=== PATIENT | female | born 1990 | race Two or more races ===

== ENCOUNTER 2016-04-18 13:46 | Inpatient (IN) | payer OTHER ==
[~2016-04-18] VITALS: Ht 154.9 cm; Wt 63.5 kg
[2016-04-18] MEDS ORDERED: NKM (14:04)
[2016-04-18 14:10] VITALS: BP 116/76
--- NOTE | 2016-04-18 14:10 | Emergency Room Report ---
History of Present Illness General Chief Complaint: Pain Source: Patient Present Illness HPI Patient is a 25-year-old female who presented after having increased low back pain. Patient was noted to have bilateral numbness and tingling. Patient had previous silicon injection approximately one year ago. Patient had increased body aches. Patient was presented for further evaluation.The patient noted numbness in the lateral thighs bilaterally. She had onset of symptoms of pain and numbness approximately 3 months ago. The patient had no symptoms previously. This had been progressive in nature. The patient was not having any focal weakness. Patient was able ambulatory normally and was having normal bowel movements and urinating normally. She denies being . The pain and previously been relieved by NSAIDs but the patient was no longer having any relief. the pain was worse in by flexion Allergies: Coded Allergies: No Known Allergies (Unverified , 04/18/16) Patient History Past Medical History: see triage record Last Menstrual Period: on period Reviewed Nursing Documentation: PMH: Agreed, PSxH: Agreed Nursing Documentation-PMH Past Medical History: No Stated History Review of Systems All Other Systems: negative except mentioned in HPI Physical Exam Vital Signs Date Time Temp Pulse Resp B/P Pulse Ox O2 Delivery O2 Flow Rate FiO2 04/18/16 14:01 97.9 87 15 113/76 97 Room Air Sp02 EP Interpretation: reviewed, normal General Appearance: normal inspection, well appearing, no apparent distress, alert, GCS 15 Head: atraumatic ENT: normal ENT inspection, hearing grossly normal, normal voice Neck: normal inspection, full range of motion, supple, no bony tend Respiratory: normal inspection, lungs clear, normal breath sounds, no respiratory distress, no retraction, no wheezing Cardiovascular #1: regular rate, rhythm, no edema Gastrointestinal: normal inspection, normal bowel sounds, non tender, soft, no guarding, no hernia Genitourinary: no CVA tenderness Musculoskeletal: normal inspection, back normal, normal range of motion Neurologic: normal inspection, alert, oriented x3, responsive, 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 Because of complexity of patient's case laboratory testing and imaging studies were ordered. The patient was noted to have history concerning for an autoimmune response due to the previous injections. Laboratory studies were essentially unremarkable. Patient was discussed with for inpatient management due to concerning symptoms. Labs Test 04/18/16 14:27 White Blood Count 5.3 K/UL (4.8-10.8) Red Blood Count 4.88 M/UL (4.20-5.40) Hemoglobin 14.2 G/DL (12.0-16.0) Hematocrit 42.1 % (37.0-47.0) Mean Corpuscular Volume 86 FL (80-99) Mean Corpuscular Hemoglobin 29.0 PG (27.0-31.0) Mean Corpuscular Hemoglobin Concent 33.7 G/DL (32.0-36.0) Red Cell Distribution Width 11.6 % (11.6-14.8) Platelet Count 361 K/UL (150-450) Mean Platelet Volume 7.2 FL (6.5-10.1) Neutrophils (%) (Auto) 45.0 % (45.0-75.0) Lymphocytes (%) (Auto) 39.6 % (20.0-45.0) Monocytes (%) (Auto) 9.2 % (1.0-10.0) Eosinophils (%) (Auto) 4.7 % (0.0-3.0) Basophils (%) (Auto) 1.5 % (0.0-2.0) Prothrombin Time 10.5 SEC (9.30-11.50) Prothromb Time International Ratio 1.0 (0.9-1.1) Activated Partial Thromboplast Time 30 SEC (23-33) Urine Color Yellow Urine Appearance Slightly cloudy Urine pH 5.0 (4.5-8.0) Urine Specific [place] 1.025 (1.005-1.035) Urine Protein Negative (NEGATIVE) Urine Glucose (UA) Negative (NEGATIVE) Urine Ketones Negative (NEGATIVE) Urine Occult Blood 3+ (NEGATIVE) Urine Nitrite Negative (NEGATIVE) Urine Bilirubin Negative (NEGATIVE) Urine Urobilinogen Normal MG/DL (0.0-1.0) Urine Leukocyte Esterase Negative (NEGATIVE) Urine RBC 20-30 /HPF (0 - 2) Urine WBC 2-4 /HPF (0 - 2) Urine Squamous Epithelial Cells Few /LPF (NONE/OCC) Urine Bacteria Few /HPF (NONE) Urine Mucus Moderate /LPF (NONE/OCC) Urine HCG, Qualitative Negative Sodium Level 142 mEQ/L (135-145) Potassium Level 3.8 mEQ/L (3.4-4.9) Chloride Level 101 mEQ/L (98-107) Carbon Dioxide Level 27 mEQ/L (20-30) Anion Gap 14 (5-15) Blood Urea Nitrogen 14 mg/dL (7-23) Creatinine 0.6 mg/dL (0.5-0.9) Estimat Glomerular Filtration Rate > 60 mL/min (>60) Glucose Level 71 mg/dL (74-106) Calcium Level 9.6 mg/dL (8.6-10.2) Total Bilirubin 0.3 mg/dL (0.0-1.2) Aspartate Amino Transf (AST/SGOT) 20 U/L (5-40) Alanine Aminotransferase (ALT/SGPT) 16 U/L (3-33) Alkaline Phosphatase 72 U/L (35-104) Total Protein 7.5 g/dL (6.6-8.7) Albumin 4.5 g/dL (3.5-5.2) Globulin 3.0 g/dL Albumin/Globulin Ratio 1.5 (1.0-2.7) Last Vital Signs Date Time Temp Pulse Resp B/P Pulse Ox O2 Delivery O2 Flow Rate FiO2 04/18/16 14:01 97.9 87 15 113/76 97 Room Air Status: unchanged Disposition: ADMITTED INPATIENT Condition: Zander Edward Apr 18, 2016 14:10
[2016-04-18] MEDS ORDERED: Norco 5mg/325mg tab ORAL ONE (14:30)
[2016-04-18 14:59] LABS: BASOPHILS % (AUTO) 1.5 % (0.0-2.0); EOSINOPHILS % (AUTO) 4.7 % (0.0-3.0); LYMPHOCYTES % (AUTO) 39.6 % (20.0-45.0); MEAN CORPUSCULAR HGB CONC 33.7 G/DL (32.0-36.0); MEAN CORPUSCULAR VOLUME 86 FL (80-99); MEAN PLATELET VOLUME 7.2 FL (6.5-10.1); MONOCYTES % (AUTO) 9.2 % (1.0-10.0); PLATELET COUNT 361 K/UL (150-450); RED BLOOD COUNT 4.88 M/UL (4.20-5.40); RED CELL DISTRIBUTION WIDTH 11.6 % (11.6-14.8); WHITE BLOOD COUNT 5.3 K/UL (4.8-10.8)
[2016-04-18 15:03] LABS: APPEARANCE,URINE SLIGHTLY CLOUDY
[2016-04-18 15:04] LABS: KETONES,URINE NEGATIVE (NEGATIVE); LEUKOCYTE ESTERASE ,URINE NEGATIVE (NEGATIVE); NITRITE,URINE NEGATIVE (NEGATIVE); PROTEIN,URINE NEGATIVE (NEGATIVE); UROBILINOGEN,URINE NORMAL MG/DL (0.0-1.0)
[2016-04-18 15:05] LABS: BACTERIA,URINE FEW /HPF; MUCUS,URINE MODERATE /LPF (NONE/OCC); RBC,URINE 20-30 /HPF (0 - 2); SQUAMOUS EPITHELIAL CELL,UR FEW /LPF (NONE/OCC)
[2016-04-18 15:10] LABS: PROTHROMBIN TIME 10.5 SEC (9.30-11.50)
[2016-04-18 15:20] LABS: ALANINE AMINOTRANSFERASE 16 U/L (3-33); ALBUMIN/GLOBULIN RATIO 1.5 (1.0-2.7); ANION GAP 14 (5-15); ASPARTATE AMINO TRANSFERASE 20 U/L (5-40); CALCIUM 9.6 mg/dL (8.6-10.2); CARBON DIOXIDE 27 mEQ/L (20-30); CHLORIDE 101 mEQ/L (98-107); CREATININE 0.6 mg/dL (0.5-0.9); GLOMERULAR FILTRATION RATE > 60 mL/min (>60); HEMOLYSIS 8; POTASSIUM 3.8 mEQ/L (3.4-4.9); SODIUM 142 mEQ/L (135-145); TOTAL PROTEIN 7.5 g/dL (6.6-8.7)
[2016-04-18] MEDS ORDERED: Ampicillin/Sulbactam Sod 3 GM in NS 110 ML IVPB ONE (15:30)
[2016-04-18] MEDS ORDERED: Unasyn 3gm Inj ONE ×2 (15:51→23:48)
[2016-04-18 15:58] VITALS: BP 100/61
[2016-04-18] MEDS ORDERED: Mylanta II UD 30ml ORAL PRN (18:30)
[2016-04-18] MEDS ORDERED: Morphine Sulfate 2mg/ml Inj IVP PRN (18:30)
[2016-04-18] MEDS ORDERED: Miralax 17gm pkt ORAL PRN (18:30)
[2016-04-18] MEDS ORDERED: Milk of Magnesia 30ml Ud ORAL PRN (18:30)
[2016-04-18] MEDS ORDERED: LORazepam 1mg tab ORAL PRN (18:30)
[2016-04-18] MEDS ORDERED: Morphine Sulfate 4mg/ml Inj IVP PRN (18:30)
[2016-04-18 19:43] VITALS: BP 115/68
[2016-04-18] MEDS: Docusate 100mg cap ORAL SCH (21:14)
[2016-04-18] MEDS: Heparin 5000 units/ml inj SUBQ SCH (21:15)
--- NOTE | 2016-04-18 21:17 | History and Physical ---
History of Present Illness General Date patient seen: Apr 18, 2016 Time patient seen: 18:00 Reason for Hospitalization: Pain Present Illness HPI 25 y/o female who presents with severe low back pain, along with bilateral lower extremity paresthesias for the past 3 months. Her pain and symptoms have become severe enough to the point where OTC analgesics like advil are no longer controlling the pain. She recently had a silicone injection in her gluteal region 1.5 years ago. When she sleeps on her sides, she develops lateral thigh pain and burning on the contralateral leg. She c/o severe fatigue/malaise over the past few months, this has affected her ADLs and impeded social interaction. Her gluteal and low back pain are increased when she sits for longer than 10mins. She also admits to shortness of breath occasionally, no fevers/chills, no chest pain, no change in appetite or weight. No abd pain, no n/v. She denies smoking, etoh,or drug use. No other medical conditions, and taking no other medications. Allergies: Coded Allergies: No Known Allergies (Unverified , 04/18/16) Medication History Scheduled No Known Medications* (NKM - No Known Medications*), 0 ., (Reported) Patient History History Provided By: Patient Healthcare decision maker Resuscitation status Advanced Directive on File Family History Family History: Patient reports no known family medical history. Social History Social History: (1) Intractable back pain Review of Systems Constitutional: Reports: malaise, weakness Eye: Denies: acuity changes, blurred vision, discharge, double vision, eye pain , no symptoms, nose congestion, nose pain, other, see HPI, tearing ENT: Denies: ear discharge, ear pain, hearing loss, mouth pain, nasal discharge , no symptoms, nose congestion, nose pain, other, see HPI, throat pain, throat swelling Respiratory: Reports: shortness of breath Cardiovascular: Denies: PND, chest pain, edema, no symptoms, other, palpitations, see HPI, syncope Gastrointestinal: Denies: abdominal pain, constipation, diarrhea, hematemesis, melena, nausea, no symptoms, other, see HPI, vomiting Genitourinary: Denies: discharge, dysuria, frequency, hematuria, incontinence, no symptoms, other, pain, retention, see HPI, urgency, vag bleed/dc Musculoskeletal: Reports: back pain, muscle pain Skin: Denies: change in color, change in hair/nails, dryness, lesions, no symptoms, other, rash, see HPI Psychiatric: Denies: HI, SI, anxiety, depressed feelings, emotional problems, hallucinations, no symptoms, other, prior hx, see HPI Neurological: Reports: numbness, paresthesia, tingling Endocrine: Denies: excessive sweating, flushing, increased thirst, increased urine, intolerance to temperature, no symptoms, other, see HPI, unexplained weight loss Hematologic/Lymphatic: Denies: anemia, blood clots, diathesis, easy bleeding, easy bruising, no symptoms, other, see HPI, swollen glands Physical Exam General Appearance: WD/WN, no apparent distress, alert Lines, tubes and drains: peripheral HEENT: normocephalic, atraumatic, anicteric, mucous membranes moist, PERRL Neck: non-tender, normal alignment, supple, normal inspection Respiratory/Chest: chest wall non-tender, lungs clear, normal breath sounds, no respiratory distress, no accessory muscle use Cardiovascular/Chest: normal peripheral pulses, normal rate, regular rhythm, no JVD Abdomen: normal bowel sounds, non tender, soft, no organomegaly Extremities: normal range of motion, non-tender, normal inspection, no calf tenderness, normal capillary refill Skin Exam: normal pigmentation, warm/dry, no diaphoresis Neurologic: alert, oriented x 3, responsive, normal mood/affect Last 24 Hour Vital Signs Date Time Temp Pulse Resp B/P Pulse Ox O2 Delivery O2 Flow Rate FiO2 04/18/16 20:19 97.9 04/18/16 19:43 97.9 83 24 115/68 100 Room Air 04/18/16 15:58 98.0 81 16 100/61 98 Room Air 04/18/16 15:32 98.0 04/18/16 14:10 97.9 80 18 116/76 100 Room Air 04/18/16 14:01 97.9 87 15 113/76 97 Room Air Laboratory Tests Test 04/18/16 14:27 White Blood Count 5.3 K/UL (4.8-10.8) Red Blood Count 4.88 M/UL (4.20-5.40) Hemoglobin 14.2 G/DL (12.0-16.0) Hematocrit 42.1 % (37.0-47.0) Mean Corpuscular Volume 86 FL (80-99) Mean Corpuscular Hemoglobin 29.0 PG (27.0-31.0) Mean Corpuscular Hemoglobin Concent 33.7 G/DL (32.0-36.0) Red Cell Distribution Width 11.6 % (11.6-14.8) Platelet Count 361 K/UL (150-450) Mean Platelet Volume 7.2 FL (6.5-10.1) Neutrophils (%) (Auto) 45.0 % (45.0-75.0) Lymphocytes (%) (Auto) 39.6 % (20.0-45.0) Monocytes (%) (Auto) 9.2 % (1.0-10.0) Eosinophils (%) (Auto) 4.7 % (0.0-3.0) H Basophils (%) (Auto) 1.5 % (0.0-2.0) Prothrombin Time 10.5 SEC (9.30-11.50) Prothromb Time International Ratio 1.0 (0.9-1.1) Activated Partial Thromboplast Time 30 SEC (23-33) Urine Color Yellow Urine Appearance Slightly cloudy Urine pH 5.0 (4.5-8.0) Urine Specific [place] 1.025 (1.005-1.035) Urine Protein Negative (NEGATIVE) Urine Glucose (UA) Negative (NEGATIVE) Urine Ketones Negative (NEGATIVE) Urine Occult Blood 3+ (NEGATIVE) H Urine Nitrite Negative (NEGATIVE) Urine Bilirubin Negative (NEGATIVE) Urine Urobilinogen Normal MG/DL (0.0-1.0) Urine Leukocyte Esterase Negative (NEGATIVE) Urine RBC 20-30 /HPF (0 - 2) H Urine WBC 2-4 /HPF (0 - 2) Urine Squamous Epithelial Cells Few /LPF (NONE/OCC) Urine Bacteria Few /HPF (NONE) Urine Mucus Moderate /LPF (NONE/OCC) H Urine HCG, Qualitative Negative Sodium Level 142 mEQ/L (135-145) Potassium Level 3.8 mEQ/L (3.4-4.9) Chloride Level 101 mEQ/L (98-107) Carbon Dioxide Level 27 mEQ/L (20-30) Anion Gap 14 (5-15) Blood Urea Nitrogen 14 mg/dL (7-23) Creatinine 0.6 mg/dL (0.5-0.9) Estimat Glomerular Filtration Rate > 60 mL/min (>60) Glucose Level 71 mg/dL (74-106) L Calcium Level 9.6 mg/dL (8.6-10.2) Total Bilirubin 0.3 mg/dL (0.0-1.2) Aspartate Amino Transf (AST/SGOT) 20 U/L (5-40) Alanine Aminotransferase (ALT/SGPT) 16 U/L (3-33) Alkaline Phosphatase 72 U/L (35-104) Total Protein 7.5 g/dL (6.6-8.7) Albumin 4.5 g/dL (3.5-5.2) Globulin 3.0 g/dL Albumin/Globulin Ratio 1.5 (1.0-2.7) Height (Feet): 5 Height (Inches): 1.00 Weight (Pounds): 140 Medications Current Medications Medications (Trade) Dose Ordered Sig/Dc Route PRN Reason Start Time Stop Time Status Last Admin Dose Admin Acetaminophen (Tylenol) 650 mg Q4H PRN ORAL Mild Pain (Pain Scale 1-3) 04/18/16 18:30 05/18/16 18:29 Acetaminophen (Tylenol) 650 mg Q4H PRN ORAL T>100.5 04/18/16 18:30 05/18/16 18:29 Al Hydroxide/Mg Hydroxide (Mylanta II) 30 ml Q6H PRN ORAL dyspepsia 04/18/16 18:30 05/18/16 18:29 Ampicillin Sodium/ Sulbactam Sodium/ Sodium Chloride (Unasyn/Sodium Chloride) 110 ml @ 220 mls/hr Q6HR IVPB 04/19/16 00:00 04/26/16 00:00 Bisacodyl (Dulcolax) 10 mg HSPRN PRN RECTAL Constipation 04/18/16 18:30 05/18/16 18:29 Dextrose STAT PRN IV Hypoglycemia 04/18/16 18:30 05/18/16 18:29 Diphenhydramine HCl (Benadryl) 25 mg Q6H PRN ORAL Itching/Pruritis 04/18/16 18:30 05/18/16 18:29 Docusate Sodium (Colace) 100 mg EVERY 12 HOURS ORAL 04/18/16 21:00 05/18/16 20:59 Heparin Sodium (Porcine) (Heparin 5000 units/ml) 5,000 units EVERY 12 HOURS SUBQ 04/18/16 21:00 05/18/16 20:59 Lorazepam (Ativan) 1 mg Q4H PRN ORAL For Anxiety 04/18/16 18:30 04/25/16 18:29 Magnesium Hydroxide (Mom) 30 ml HSPRN PRN ORAL Constipation 04/18/16 18:30 05/18/16 18:29 Morphine Sulfate (Morphine Sulfate) 2 mg Q4H PRN IVP Moderate Pain (Pain Scale 4-6) 04/18/16 18:30 04/25/16 18:29 04/18/16 19:49 Morphine Sulfate (Morphine Sulfate) 4 mg Q4H PRN IVP Severe Pain (Pain Scale 7-10) 04/18/16 18:30 04/25/16 18:29 Ondansetron HCl (Zofran) 4 mg Q6H PRN IVP Nausea & Vomiting 04/18/16 18:30 05/18/16 18:29 Polyethylene Glycol (Miralax) 17 gm HSPRN PRN ORAL Constipation 04/18/16 18:30 05/18/16 18:29 Temazepam (Restoril) 15 mg HSPRN PRN ORAL Insomnia 04/18/16 18:30 04/25/16 18:29 Assessment/Plan Problem List: (1) Intractable back pain Assessment & Plan: Admit to inpatient Will need expedited workup of severe low back pain, s/p gluteal silicone injection Extensive lab workup to r/o WILSON syndrome given classical symptoms and presentation MRI L spine and pelvis to r/o fluid collection, cord compression, soft tissue necrosis Check urine f/u blood cultures Start IV unasyn A total of 31 minutes of time was spent above and beyond the normal visit time ICD Codes: M54.9 - Dorsalgia, unspecified SNOMED: [id number] LEISA CHILDRESS Apr 18, 2016 21:17
[2016-04-18 23:37] VITALS: BP 98/65
[2016-04-19] MEDS ORDERED: Unasyn 3gm Inj IV SCH
[2016-04-19] MEDS: Unasyn 3gm/NS 110ml IVPB SCH ×8 (00:12→12:25)
[2016-04-19 03:25] VITALS: BP 95/64
[2016-04-19 03:43] LABS: ANION GAP 12 (5-15); CALCIUM 9.2 mg/dL (8.6-10.2); CARBON DIOXIDE 27 mEQ/L (20-30); CHLORIDE 102 mEQ/L (98-107); CREATININE 0.6 mg/dL (0.5-0.9); GLOMERULAR FILTRATION RATE > 60 mL/min (>60); HEMOLYSIS 3; SODIUM 141 mEQ/L (135-145)
[2016-04-19] MEDS ORDERED: Unasyn 3gm Inj ONE (06:15)
[2016-04-19 06:55] VITALS: BP 95/56
[2016-04-19 08:23] VITALS: BP 103/60
[2016-04-19] MEDS: Docusate 100mg cap ORAL SCH ×2 (08:40→21:58)
[2016-04-19] MEDS: Heparin 5000 units/ml inj SUBQ SCH ×2 (08:42→16:43)
[2016-04-19 11:56] VITALS: BP 91/42
--- NOTE | 2016-04-19 13:00 | General Progress Note ---
Assessment/Plan Problem List: (1) Intractable back pain Assessment & Plan: f/u expedited workup of severe low back pain, s/p gluteal silicone injection, lab workup to r/o WILSON syndrome given classical symptoms and presentation MRI L spine and pelvis to r/o fluid collection, cord compression, soft tissue necrosis Check urine f/u blood cultures Cont IV unasyn A total of 31 minutes of time was spent above and beyond the normal visit time ICD Codes: M54.9 - Dorsalgia, unspecified SNOMED: [id number] Subjective Date patient seen: Apr 19, 2016 Time patient seen: 12:57 ROS Limited/Unobtainable: No Allergies: Coded Allergies: No Known Allergies (Unverified , 04/18/16) Subjective No acute overnight events, no new complaints. Pt states she has a slight headache and some lightheadedness, low back pain is the same, no change in symptoms. Objective Last 24 Hour Vital Signs Date Time Temp Pulse Resp B/P Pulse Ox O2 Delivery O2 Flow Rate FiO2 04/19/16 11:56 97.7 78 16 91/42 97 Room Air 04/19/16 08:23 97.6 74 15 103/60 98 Room Air 04/19/16 07:51 97.9 68 15 95/56 99 Room Air 04/19/16 06:55 97.9 68 15 95/56 99 Room Air 04/19/16 03:25 97.9 69 14 95/64 99 Room Air 04/18/16 23:37 97.9 67 22 98/65 100 Room Air 04/18/16 20:19 97.9 04/18/16 19:43 97.9 83 24 115/68 100 Room Air 04/18/16 15:58 98.0 81 16 100/61 98 Room Air 04/18/16 15:32 98.0 04/18/16 14:10 97.9 80 18 116/76 100 Room Air 04/18/16 14:01 97.9 87 15 113/76 97 Room Air Intake and Output 04/18/16 04/19/16 19:00 07:00 Intake Total 110 ml 220 ml Balance 110 ml 220 ml Intake IV Total 110 ml 220 ml # Voids 1 Laboratory Tests 04/18/16 14:27: White Blood Count 5.3, Red Blood Count 4.88, Hemoglobin 14.2, Hematocrit 42.1, Mean Corpuscular Volume 86, Mean Corpuscular Hemoglobin 29.0, Mean Corpuscular Hemoglobin Concent 33.7, Red Cell Distribution Width 11.6, Platelet Count 361, Mean Platelet Volume 7.2, Neutrophils (%) (Auto) 45.0, Lymphocytes (%) (Auto) 39.6, Monocytes (%) (Auto) 9.2, Eosinophils (%) (Auto) 4.7H, Basophils (%) (Auto ) 1.5, Prothrombin Time 10.5, Prothromb Time International Ratio 1.0, Activated Partial Thromboplast Time 30, Urine Color Yellow, Urine Appearance Slightly cloudy, Urine pH 5.0, Urine Specific [place] 1.025, Urine Protein Negative, Urine Glucose (UA) Negative, Urine Ketones Negative, Urine Occult Blood 3+H, Urine Nitrite Negative, Urine Bilirubin Negative, Urine Urobilinogen Normal, Urine Leukocyte Esterase Negative, Urine RBC 20-30H, Urine WBC 2-4, Urine Squamous Epithelial Cells Few, Urine Bacteria Few, Urine Mucus ModerateH, Urine HCG, Qualitative Negative, Sodium Level 142, Potassium Level 3.8, Chloride Level 101, Carbon Dioxide Level 27, Anion Gap 14, Blood Urea Nitrogen 14, Creatinine 0.6, Estimat Glomerular Filtration Rate > 60, Glucose Level 71L, Calcium Level 9.6, Total Bilirubin 0.3, Aspartate Amino Transf (AST/SGOT) 20, Alanine Aminotransferase (ALT/SGPT) 16, Alkaline Phosphatase 72, Total Protein 7.5, Albumin 4.5, Globulin 3.0, Albumin/Globulin Ratio 1.5 04/18/16 14:37: Erythrocyte Sedimentation Rate 10, C-Reactive Protein, Quantitative 0.4 04/19/16 03:10: White Blood Count [Pending], Sodium Level 141, Potassium Level 4.0, Chloride Level 102, Carbon Dioxide Level 27, Anion Gap 12, Blood Urea Nitrogen 14, Creatinine 0.6, Estimat Glomerular Filtration Rate > 60, Glucose Level 97, Calcium Level 9.2, Albumin/Globulin Ratio [Pending], Lymphocytes [Pending], Lupus Anticoagulant [Pending], Lupus Anticoagulant PTT Baseline [Pending], Lupus Anticoag DRVVT Screen Ratio [Pending], DRVVT Confirmation Interpretation [ Pending], Hexagonal Phase Comment [Pending], Total Protein (PEP) [Pending], Albumin (PEP) [Pending], Globulin (PEP) [Pending], Xprgb-7-[id number] [Pending], Onebe-0-Hteqksjgx [Pending], Beta Globulins [Pending], Beta Gamma Globulin [ Pending], PEP Abnormal Protein Bands [Pending], Protein Electrophoresis Interpret [Pending], Angiotensin Converting Enzyme [Pending], Immunoglobulin G [ Pending], Immunoglobulin A [Pending], Immunoglobulin M [Pending], Immunofixation Screen [Pending], Circulating Immune Complexes [Pending], Rheumatoid Factor Screen [Pending], Anti-Nuclear Antibody Screen [Pending], SS-A /Ro Antibody [Pending], SS-B/La Antibody [Pending], Total Complement (CH50) [ Pending], Percent CD3 Cells [Pending], Absolute CD3 Count [Pending], Percent CD4 Cells [Pending], Absolute CD4 Count [Pending], T-Lymphocyte CD4/CD8 Ratio [ Pending], Percent CD8 Cells [Pending], Absolute CD8 Count [Pending] Height (Feet): 5 Height (Inches): 1.00 Weight (Pounds): 140 General Appearance: WD/WN, no apparent distress, alert EENT: PERRL/EOMI, normal ENT inspection Neck: non-tender, normal alignment, supple Cardiovascular: normal peripheral pulses, normal rate, regular rhythm, no gallop/murmur, no JVD Respiratory/Chest: chest wall non-tender, lungs clear, normal breath sounds, no respiratory distress, no accessory muscle use Abdomen: normal bowel sounds, non tender, soft Extremities: normal range of motion, non-tender, normal inspection, no calf tenderness Edema: no edema noted Arm (L), no edema noted Arm (R), no edema noted Leg (L), no edema noted Leg (R), no edema noted Pedal (L), no edema noted Pedal (R), no edema noted Generalized Neurologic: alert, oriented x 3, responsive, normal mood/affect Skin: normal pigmentation, warm/dry, no diaphoresis LEISA CHILDRESS Apr 19, 2016 13:00
[2016-04-19 19:00] VITALS: BP 98/61
[2016-04-20] VITALS (12 sets, daily range): BP systolic 97–113; BP diastolic 17–71
--- NOTE | 2016-04-20 01:28 | Consultation ---
Consult Note Consult Note H&P dictated pt was evaluated on 04/19/16 Maria Guadalupe King M.D. Apr 20, 2016 01:28
--- NOTE | 2016-04-20 07:32 | Anethesia Preoperative Eval ---
Anesthesia Pre-op PMH/ROS General Date of Evaluation: Apr 20, 2016 Time of Evaluation: 10:09 Anesthesiologist: Rory ASA Score: ASA 1 Mallampati Score Class I : Soft palate, uvula, fauces, pillars visible Class II: Soft palate, uvula, fauces visible Class III: Soft palate, base of uvula visible Class IV: Only hard plate visible Mallampati Classification: Class I Surgeon: Riaz Diagnosis: Back Pain Surgical Procedure: Staged Debridement Necrotic Tissue Back an Buttock Anesthesia History: none Family History: no anesthesia problems Allergies: Coded Allergies: No Known Allergies (Unverified , 04/18/16) Medications: see eMAR Past Medical History Musculoskeletal/Integumentary: Reports: other - Silicone Abscess Buttock and Back Anesthesia Pre-op Phys. Exam Physician Exam Last Vital Signs Date Time Temp Pulse Resp B/P Pulse Ox O2 Delivery O2 Flow Rate FiO2 04/19/16 19:00 97.3 78 20 98/61 98 Room Air Constitutional: NAD Neurologic: CN 2-12 intact Cardiovascular: RRR Respiratory: CTA Gastrointestinal: S/NT/ND Airway Exam Mallampati Score: Class I MO: full ROM: full Teeth: intact Anesthesia Pre-op A/P Risk Assessment & Plan Assessment: ASA 1 Plan: GA, Glidescope, BIS Status Change Before Surgery: No Pre-Antibiotics Dru Gram Ancef IV Given Within 1 Hr of Incision: Yes Time Given: 10:26 Sherman Valadez MD Apr 20, 2016 07:32
[2016-04-20] MEDS ORDERED: Nitroglycerin 2% oint pkt TOPIC ONE (07:42)
[2016-04-20] MEDS ORDERED: Bacitracin Oint 15gm Tube TOPIC ONE (07:42)
[2016-04-20] MEDS ORDERED: Muri-Lube ONE (07:43)
[2016-04-20] MEDS ORDERED: Bupivacaine w/Epi 0.5% 30ml Vial INJ ONE ×2 (07:44)
[2016-04-20] MEDS ORDERED: Bacitracin 50000 Units Vial ONE (07:44)
[2016-04-20] MEDS ORDERED: ProvayBlue 5mg/ml 10ml amp INJ ONE (08:30)
[2016-04-20] MEDS: Docusate 100mg cap ORAL SCH ×2 (09:00→20:22)
[2016-04-20] MEDS: Heparin 5000 units/ml inj SUBQ SCH ×2 (09:00→21:59)
[2016-04-20] MEDS ORDERED: Midazolam 2mg/2ml Inj ONE (10:00)
[2016-04-20] MEDS ORDERED: Dexamethasone 4mg/ml vial ONE (10:00)
[2016-04-20] MEDS ORDERED: Propofol 10mg/ml 100ml btl IV ONE (10:00)
[2016-04-20] MEDS ORDERED: Glycopyrrolate 0.2mg/ml 1ml Vial ONE (10:00)
[2016-04-20] MEDS ORDERED: Lidocaine 1% Plain 30 ml INJ ONE (10:00)
[2016-04-20] MEDS ORDERED: LR 1000ml ONE (10:00)
[2016-04-20] MEDS ORDERED: fentaNYL 100 mcg/2 mL IV ONE (10:00)
[2016-04-20] MEDS ORDERED: Zemuron 50mg/5ml Inj IV ONE (10:00)
[2016-04-20] MEDS ORDERED: Neostigmine 1mg/ml 10ml Inj ONE (10:00)
[2016-04-20 10:17] LABS: RHEUMATOID FACTOR SCREEN <10.0 IU/mL (0.0-13.9)
--- NOTE | 2016-04-20 10:44 | Diagnostic Imaging Report ---
Indication: History of bilateral buttock subcutaneous injections, preoperative for silicone removal Technique: Coronal T1 fast spin echo, coronal FSE IR axial T1 fast spin-echo, axial STIR FSE axial T2 or FSE, axial T2 FRS SC fat saturated images Comparison: None Findings: Innumerable small nodules are seen throughout the subcutaneous fat of the bilateral buttocks, size, and anterior anterior pelvic wall. These demonstrate high signal on the IR images, low signal on T1-weighted images. They are isointense to fat on the T2-weighted images, and saturate more than subcutaneous fat on the fat-saturated T2-weighted images there are dominantly located within the bilateral buttocks. However, are seen cephalad to the imaging volume, are seen circumferentially around both hips, and are also seen with in the lower anterior pelvic wall subcutaneous fat, pubic region, and also within the subcutaneous fat of the perineum nodule extends well into the proximal thighs. The largest of these is in the left buttock region, measuring 1 cm long axis dimension. The remainder are considerably smaller. There is increased T2 signal diffusely within the bilateral gluteus alexandra musculature. This is symmetric. There is also edema of the deep subcutaneous fat of the lower lumbar region, incompletely included. No discrete focal fluid collections to suggest abscess are evident. The included pelvic viscera are unremarkable Impression: Innumerable subcutaneous nodules, as described above, consistent with known history of bilateral silicone injections, distribution as described No focal fluid collections to suggest abscess Nonspecific edema of the bilateral with alexandra musculature. This may indicate bilateral myositis. Nonspecific edema of the deep lower lumbar subcutaneous fat, incompletely visualized
[2016-04-20] MEDS ORDERED: LR 1000ml 1,000 ML IVLG SCH (11:12)
--- NOTE | 2016-04-20 11:14 | Immediate Post-Op Evaluation ---
Immediate Post-Op Evalulation Immediate Post-Op Evalulation Procedure: Staged Debridement Necrotic Tissue Back an Buttock Date of Evaluation: Apr 20, 2016 Time of Evaluation: 13:05 IV Fluids: 800 LR Blood Products: 0 Estimated Blood Loss: 200 Urinary Output: 300 Blood Pressure Systolic: 106 Blood Pressure Diastolic: 63 Pulse Rate: 83 Respiratory Rate: 16 O2 Sat by Pulse Oximetry: 100 Temperature (Fahrenheit): 96.9 Pain Score (1-10): 3 Nausea: No Vomiting: No Complications 0 Patient Status: awake, reacts, patent, extubated, none Hydration Status: adequate Dru Gram Ancef IV Given Within 1 Hr of Incision: Yes Time Given: 10:26 Sherman Valadez MD Apr 20, 2016 11:14
[2016-04-20] MEDS ORDERED: Midazolam 2mg/2ml Inj IVP PRN (11:15)
[2016-04-20] MEDS ORDERED: Norco 5mg/325mg tab ORAL PRN (11:15)
[2016-04-20] MEDS ORDERED: Oxycodone/Acetaminophen 5-325 ORAL PRN (11:15)
[2016-04-20] MEDS ORDERED: Norco 7.5mg/325mg tab ORAL PRN (11:15)
[2016-04-20] MEDS ORDERED: Hydromorphone 0.5mg/0.5ml inj IVP PRN (11:15)
[2016-04-20] MEDS ORDERED: Meperidine 25mg/ml Inj IV PRN (11:15)
[2016-04-20] MEDS ORDERED: DiphenhydrAMINE 50mg/ml Inj IVP PRN (11:15)
[2016-04-20] MEDS ORDERED: Ketorolac 30mg Inj IV PRN (11:15)
[2016-04-20] MEDS ORDERED: Atropine Inj 1mg/10ml Syr IV PRN (11:15)
[2016-04-20] MEDS ORDERED: Labetalol 5mg/ml 20ml vial IV PRN (11:15)
[2016-04-20] MEDS ORDERED: Ketorolac 60mg Inj IV PRN (11:15)
[2016-04-20] MEDS ORDERED: Metoclopramide 10mg/2ml Inj IVP PRN (11:15)
[2016-04-20] MEDS ORDERED: LORazepam Inj 2mg/ml 1ml IV PRN (11:15)
[2016-04-20] MEDS ORDERED: fentaNYL 100 mcg/2 mL IV PRN (11:15)
--- NOTE | 2016-04-20 11:19 | Diagnostic Imaging Report ---
Indication: Status post buttock silicone injection, preoperative for removal Technique: Sagittal T1 and T2 fast spin echo, sagittal STIR, axial T1 and T2 fast spin-echo images of the lumbar spine Comparison: None Findings: Best visualized on the STIR images are numerous hyperintense subcutaneous nodules within the subcutaneous fat of the upper buttock and lower lumbar region. These are also visible as hypointense nodules on the T1-weighted images. Within the superficial subcutaneous fat, nodules are seen as far cephalad as the L4 level. There is fairly extensive edema of the deep subcutaneous fat of the central lumbar region. The area of edema extends approximately 2.4 cm craniocaudad, at least 17 cm transverse, and is approximately 20 mm thick. There are multiple nodular areas within the area of edema. Many of these have signal characteristics on whole sequences which are identical with fat, and therefore most likely represent nonedematous fat lobules. However, some of the more caudad nodular areas are high signal on STIR. In fact, the largest visualized nodule is within this area, to the right of midline, measuring 15 elevated long axis dimension. Most of the deeper nodules extend as far cephalad as the L4 level. However, a few small nodules are seen within the area of edema which have high STIR signal and therefore likely represent silicone nodules. These are seen as far cephalad as L2. No discrete walled off fluid collections are demonstrated. The vertebral body marrow signal is normal. Vertebral body heights and disc spaces are preserved. No significant disc bulge or protrusion, spinal stenosis, or neural foraminal stenosis. The included extraspinal visceral tissues are unremarkable. Impression: Multiple nodules within the lumbar subcutaneous fat, as described, consistent with known history of silicone injections. Most of these extend only as far cephalad as the L4 level. However, there is a fairly extensive area of edema within the deeper lumbar region subcutaneous fat centrally, which contains a few nodules which are seen extending as far cephalad as the L2 level. As described above, extensive edema within the deep lumbar subcutaneous fat. Uncertain as to the relationship to the silicone injections, as this is a fairly common finding. No discrete fluid collections to suggest abscess Normal lumbar spine
[2016-04-20] MEDS ORDERED: Acetaminophen (Non formulary) 100 ML IV ONE (12:00)
[2016-04-20 12:10] LABS: IMMUNOGLOBULIN A 263 mg/dL (87-352); IMMUNOGLOBULIN G 1100 mg/dL (700-1600); IMMUNOGLOBULIN M 102 mg/dL (26-217)
--- NOTE | 2016-04-20 12:18 | Consultation ---
DATE OF CONSULTATION: NOTE: "POOR AUDIO QUALITY" CONSULTING PHYSICIAN: Maria Guadalupe King M.D. HISTORY OF PRESENT ILLNESS: This is a 25-year-old female who has been presented with lower back pain and bilateral lower extremity paresthesia and tingling for the past three months. It became excessively more severe and pain medication has not been controlling her pain. The patient has had silicone injections in her buttock area one and a half years ago. The patient has been admitted to the hospital for silicone removal from her buttock area. During the evaluation, the patient endorsed some anxiety in regard to her fissure surgery; however, it appears that it is normal reaction to the situation she is in. We discussed there is a possibility that after the surgery that could be that would cosmetically be figuring and also there is a chance that the patient may not improve after the surgery. The patient was told that it is impossible to remove all of the foreign material and there will be some left and also in some cases, the silicone might have migrated or continue to migrate in future. The patient was able to understand the process, communicate, and appreciate the information that was given to her. She did not understanding other psychiatric symptoms like depression, bakari, or psychotic disorder. No suicidal or homicidal ideations. PAST MEDICAL HISTORY: None significant. ALLERGIES: No known drug allergies. SUBSTANCE ABUSE HISTORY: No history of illicit drug use or alcohol. PAST PSYCHIATRIC HISTORY: The patient has no history of psychiatric illness. No psychiatric hospitalizations. No suicide attempts. MENTAL STATUS EXAMINATION: Alert and oriented x4. Mood is neutral, mildly anxious. Affect is constricted, congruent with mood. Thought process is concrete. Thought content, no suicidal or homicidal ideations. ASSESSMENT/IMPRESSION: The patient is able to make an informed decision as she has capacity to understand the risks and benefits both. She was also given low dose of sleeping-aid medication, Restoril 15 mg at bedtime p.r.n. We will continue to follow the patient. Maria Guadalupe King M.D. DR: Gretel JOB#: [id number] CC:
--- NOTE | 2016-04-20 12:38 | Pre-Procedure Note/Attestation ---
Pre-Procedure Note/Attestation Complete Prior to Procedure Planned Procedure: bilateral Procedure Narrative: staged bilateral buttock and back soft tissue necrosis, flap delay and vac placement Indications for Procedure Pre-Operative Diagnosis: bilateral buttock and back soft tissue necrosis; cellulitis Attestation I attest that I discussed the nature of the procedure; its benefits; risks and complications; and alternatives (and the risks and benefits of such alternatives ), prior to the procedure, with the patient (or the patient's legal in store representative). I attest that, if there was a reasonable possibility of needing a blood transfusion, the patient (or the patient's legal in store representative) was given the [facility] standardized written summary, pursuant to the [place] Blood Safety Act ([place] Health and Safety Code # 1645, as amended). I attest that I re-evaluated the patient just prior to the surgery and that there has been no change in the patient's H&P, except as documented below: Kateryna Mello M.D. Apr 20, 2016 12:38
--- NOTE | 2016-04-20 12:40 | Operative Note - PDOC ---
Operative Note Operative Note Date of Operation/Procedure: Apr 20, 2016 Pre-op Diagnosis: bilateral buttock and back soft tissue necrosis; cellulitis Procedure: staged debridement of bilateral buttock and back soft tissue necrosis; flap delay and vac placement Post-op Diagnosis: bilateral buttock and back soft tissue necrosis Post-op Diagnosis: same as pre-op Surgeon: radha Rad Technologist: jayson Additional Surgeons: marcia Anesthesiologist: merlyn Anesthesia: general Specimen: yes Complications: none Condition: stable Estimated Blood Loss: volume - 300 Drains: wound vac Implant(s) used?: No Kateryna Mello M.D. Apr 20, 2016 12:40
[2016-04-20] MEDS ORDERED: Rate Change PCA 1 Each MISC PRN (12:45)
[2016-04-20] MEDS ORDERED: PCA HYDROmorphone 1mg/ml 30 ML IV PRN (12:45)
[2016-04-20] MEDS: PCA shift volume MISC SCH ×2 (15:00→23:00)
[2016-04-20] MEDS: LR 1000ml 1,000 ML IV SCH (16:00)
[2016-04-20] MEDS ORDERED: Tubing IV Secondary IV ONE (16:01)
[2016-04-20] MEDS ORDERED: NS 275ml ONE (16:01)
--- NOTE | 2016-04-20 17:46 | General Progress Note ---
Assessment/Plan Problem List: (1) Intractable back pain Assessment & Plan: Given confirmation of numerous subcutaneous nodules seen on MRI pelvis and lumbar spine, plastic surgery was consulted Pt has been taken to OR for I+D of the areas, doing well postop f/u expedited lab workup of severe low back pain, s/p gluteal silicone injection , lab workup to r/o WILSON syndrome given classical symptoms and presentation f/u blood cultures Cont IV unasyn A total of 31 minutes of time was spent above and beyond the normal visit time ICD Codes: M54.9 - Dorsalgia, unspecified SNOMED: [id number] Subjective Date patient seen: Apr 20, 2016 Time patient seen: 17:43 ROS Limited/Unobtainable: No Constitutional: Denies: chills, diaphoresis, fever, malaise, no symptoms, other , weakness HEENT: Denies: blurred vision, double vision, ear discharge, ear pain, eye pain , mouth pain, mouth swelling, no symptoms, nose congestion, nose pain, other, tearing, throat pain, throat swelling Cardiovascular: Denies: chest pain, edema, irregular heart rate, lightheadedness, no symptoms, other, palpitations, syncope Respiratory: Denies: SOB at rest, SOB with excertion, cough, no symptoms, orthopnea, other, shortness of breath, sputum, stridor, wheezing Gastrointestinal/Abdominal: Denies: abdomen distended, abdominal pain, black stools, blood in stool, constipated, diarrhea, difficulty swallowing, nausea, no symptoms, other, poor appetite, poor fluid intake, rectal bleeding, tarry stools, vomiting Genitourinary: Denies: burning, discharge, flank pain, frequency, hematuria, incontinence, no symptoms, other, pain, urgency Neurologic/Psychiatric: Denies: anxiety, depressed, emotional problems, headache, no symptoms, numbness, other, paresthesia, pre-existing deficit, seizure, tingling, tremors, weakness Endocrine: Denies: excessive sweating, flushing, increased hunger, increased thirst, increased urine, intolerance to cold, intolerance to heat, no symptoms, other, unexplained weight gain, unexplained weight loss Hematologic/Lymphatic: Denies: anemia, easy bleeding, easy bruising, no symptoms, other Allergies: Coded Allergies: No Known Allergies (Unverified , 04/18/16) Subjective No acute overnight events, no new complaints. Low back pain is the same, no change in symptoms. Objective Last 24 Hour Vital Signs Date Time Temp Pulse Resp B/P Pulse Ox O2 Delivery O2 Flow Rate FiO2 04/20/16 16:29 96.6 76 20 104/51 97 Room Air 04/20/16 15:32 19 04/20/16 15:02 19 04/20/16 14:50 19 04/20/16 14:35 96.3 66 18 107/65 100 Nasal Cannula 2.0 04/20/16 14:32 19 04/20/16 14:27 20 04/20/16 14:15 97.6 67 18 101/66 100 Nasal Cannula 3.0 04/20/16 14:12 19 04/20/16 14:00 60 24 113/71 100 Nasal Cannula 3.0 04/20/16 13:57 15 04/20/16 13:45 69 24 112/67 100 Nasal Cannula 3.0 04/20/16 13:43 19 04/20/16 13:30 86 13 113/17 100 Nasal Cannula 3.0 04/20/16 13:15 79 15 105/65 100 Simple Mask 6.0 04/20/16 13:04 89 18 104/70 100 Simple Mask 6.0 04/20/16 12:59 79 17 101/69 100 Simple Mask 6.0 04/20/16 12:55 83 16 100 04/20/16 12:54 96.9 98 18 106/63 100 Simple Mask 6.0 04/20/16 08:07 96.8 69 18 97/58 97 Room Air 04/19/16 19:00 97.3 78 20 98/61 98 Room Air Intake and Output 04/19/16 04/20/16 19:00 07:00 Intake Total 1010 ml 940 ml Balance 1010 ml 940 ml Intake Oral 900 ml 240 ml IV Total 110 ml 700 ml # Voids 2 5 Height (Feet): 5 Height (Inches): 1.00 Weight (Pounds): 140 General Appearance: WD/WN, no apparent distress, alert EENT: PERRL/EOMI, normal ENT inspection Neck: non-tender, normal alignment, supple Cardiovascular: normal peripheral pulses, normal rate, regular rhythm, no gallop/murmur, no JVD Respiratory/Chest: chest wall non-tender, lungs clear, normal breath sounds, no respiratory distress Abdomen: normal bowel sounds, non tender, soft Extremities: normal range of motion, non-tender, normal inspection Neurologic: alert, oriented x 3, responsive, normal mood/affect Skin: normal pigmentation, warm/dry, no diaphoresis LEISA CHILDRESS Apr 20, 2016 17:46
[2016-04-21] VITALS (8 sets, daily range): BP systolic 86–111; BP diastolic 46–72
[2016-04-21] MEDS: LR 1000ml 1,000 ML IV SCH ×3 (01:26→21:43)
[2016-04-21] MEDS: Heparin 5000 units/ml inj SUBQ SCH ×3 (05:53→21:45)
[2016-04-21 07:12] LABS: BASOPHILS % (AUTO) 0.5 % (0.0-2.0); EOSINOPHILS % (AUTO) 0.3 % (0.0-3.0); LYMPHOCYTES % (AUTO) 20.7 % (20.0-45.0); MEAN CORPUSCULAR HGB CONC 33.5 G/DL (32.0-36.0); MEAN CORPUSCULAR VOLUME 87 FL (80-99); MEAN PLATELET VOLUME 7.3 FL (6.5-10.1); MONOCYTES % (AUTO) 6.3 % (1.0-10.0); NEUTROPHILS % (AUTO) 72.2 % (45.0-75.0); PLATELET COUNT 318 K/UL (150-450); RED BLOOD COUNT 3.93 M/UL (4.20-5.40); RED CELL DISTRIBUTION WIDTH 11.5 % (11.6-14.8); WHITE BLOOD COUNT 8.4 K/UL (4.8-10.8)
[2016-04-21 07:14] LABS: ANION GAP 9 (5-15); CALCIUM 8.6 mg/dL (8.6-10.2); CARBON DIOXIDE 28 mEQ/L (20-30); CHLORIDE 100 mEQ/L (98-107); CREATININE 0.5 mg/dL (0.5-0.9); GLOMERULAR FILTRATION RATE > 60 mL/min (>60); HEMOLYSIS 3; SODIUM 137 mEQ/L (135-145)
[2016-04-21] MEDS: PCA shift volume MISC SCH ×3 (07:16→23:00)
[2016-04-21] MEDS: Docusate 100mg cap ORAL SCH ×2 (08:12→21:43)
--- NOTE | 2016-04-21 09:04 | Consultation ---
History of Present Illness General Date patient seen: Apr 21, 2016 Chief Complaint: Pain Present Illness Allergies: Coded Allergies: AMPICILLIN (Verified Allergy, Unknown, 04/20/16) Nausea vomiting per patient SULBACTAM (Verified Allergy, Unknown, 04/20/16) Nausea vomiting per patient Medication History Scheduled No Known Medications* (NKM - No Known Medications*), 0 ., (Reported) Patient History Healthcare decision maker N Resuscitation status Full Code Advanced Directive on File Physical Exam Last 24 Hour Vital Signs Date Time Temp Pulse Resp B/P Pulse Ox O2 Delivery O2 Flow Rate FiO2 04/21/16 08:00 98.1 83 19 95/56 95 Room Air 04/21/16 07:56 16 04/21/16 04:00 97.7 82 20 103/63 97 Room Air 04/21/16 03:32 16 04/21/16 00:00 97.5 89 20 106/57 99 Room Air 04/20/16 23:34 16 04/20/16 20:34 97.8 89 20 98/58 99 Room Air 04/20/16 19:32 16 04/20/16 16:29 96.6 76 20 104/51 97 Room Air 04/20/16 15:32 19 04/20/16 15:02 19 04/20/16 14:50 19 04/20/16 14:35 96.3 66 18 107/65 100 Nasal Cannula 2.0 04/20/16 14:32 19 04/20/16 14:27 20 04/20/16 14:15 97.6 67 18 101/66 100 Nasal Cannula 3.0 04/20/16 14:12 19 04/20/16 14:00 60 24 113/71 100 Nasal Cannula 3.0 04/20/16 13:57 15 04/20/16 13:45 69 24 112/67 100 Nasal Cannula 3.0 04/20/16 13:43 19 04/20/16 13:30 86 13 113/17 100 Nasal Cannula 3.0 04/20/16 13:15 79 15 105/65 100 Simple Mask 6.0 04/20/16 13:04 89 18 104/70 100 Simple Mask 6.0 04/20/16 12:59 79 17 101/69 100 Simple Mask 6.0 04/20/16 12:55 83 16 100 04/20/16 12:54 96.9 98 18 106/63 100 Simple Mask 6.0 Intake and Output 04/20/16 04/21/16 19:00 07:00 Intake Total 1000 ml 480 ml Output Total 550 ml 850 ml Balance 450 ml -370 ml Intake Oral 480 ml IV Total 1000 ml Output Urine Total 300 ml 850 ml Estimated Blood Loss 200 ml Other 50 ml Laboratory Tests Test 04/21/16 06:20 White Blood Count 8.4 K/UL (4.8-10.8) Red Blood Count 3.93 M/UL (4.20-5.40) L Hemoglobin 11.4 G/DL (12.0-16.0) L Hematocrit 34.0 % (37.0-47.0) L Mean Corpuscular Volume 87 FL (80-99) Mean Corpuscular Hemoglobin 29.0 PG (27.0-31.0) Mean Corpuscular Hemoglobin Concent 33.5 G/DL (32.0-36.0) Red Cell Distribution Width 11.5 % (11.6-14.8) L Platelet Count 318 K/UL (150-450) Mean Platelet Volume 7.3 FL (6.5-10.1) Neutrophils (%) (Auto) 72.2 % (45.0-75.0) Lymphocytes (%) (Auto) 20.7 % (20.0-45.0) Monocytes (%) (Auto) 6.3 % (1.0-10.0) Eosinophils (%) (Auto) 0.3 % (0.0-3.0) Basophils (%) (Auto) 0.5 % (0.0-2.0) Sodium Level 137 mEQ/L (135-145) Potassium Level 4.0 mEQ/L (3.4-4.9) Chloride Level 100 mEQ/L (98-107) Carbon Dioxide Level 28 mEQ/L (20-30) Anion Gap 9 (5-15) Blood Urea Nitrogen 7 mg/dL (7-23) Creatinine 0.5 mg/dL (0.5-0.9) Estimat Glomerular Filtration Rate > 60 mL/min (>60) Glucose Level 100 mg/dL (74-106) Calcium Level 8.6 mg/dL (8.6-10.2) Height (Feet): 5 Height (Inches): 1.00 Weight (Pounds): 140 Medications Current Medications Medications (Trade) Dose Ordered Sig/Dc Route PRN Reason Start Time Stop Time Status Last Admin Dose Admin Acetaminophen 650 mg 650 mg Q4H PRN ORAL FEVER 04/20/16 12:45 05/20/16 12:44 Al Hydroxide/Mg Hydroxide (Mylanta II) 30 ml Q6H PRN ORAL dyspepsia 04/18/16 18:30 05/18/16 18:29 Bisacodyl (Dulcolax) 10 mg HSPRN PRN RECTAL Constipation 04/18/16 18:30 05/18/16 18:29 Ciprofloxacin (Cipro 400mg/ 200ml premix bag) 200 ml @ 200 mls/hr Q12HR IV 04/20/16 09:00 04/27/16 08:59 04/21/16 08:13 Dextrose (Dextrose 50%) STAT PRN IV Hypoglycemia 04/18/16 18:30 05/18/16 18:29 Diphenhydramine HCl (Benadryl) 25 mg Q6H PRN ORAL Itching/Pruritis 04/18/16 18:30 05/18/16 18:29 Docusate Sodium (Colace) 100 mg EVERY 12 HOURS ORAL 04/18/16 21:00 05/18/16 20:59 04/21/16 08:12 Heparin Sodium (Porcine) (Heparin 5000 units/ml) 5,000 units EVERY 8 HOURS SUBQ 04/20/16 22:00 05/20/16 21:59 04/21/16 05:53 Hydromorphone HCl (Dilaudid) 2 mg Q3H PRN SUBQ Severe Pain (Pain Scale 7-10) 04/20/16 13:00 04/22/16 12:59 Hydromorphone HCl (Dilaudid) 2 mg Q4H PRN IVP Moderate Pain (Pain Scale 4-6) 04/20/16 13:00 04/22/16 12:59 Hydromorphone HCl (MULE DRIVER Dilaudid) 30 ml @ 0 mls/hr Q24H PRN IV For Pain 04/20/16 12:45 04/22/16 12:44 04/20/16 13:43 Lactated Ringer's (Lactated Ringer's 1000ml) 1,000 ml @ 100 mls/hr Q10H IV 04/20/16 16:00 05/20/16 15:59 04/21/16 01:26 Lorazepam (Ativan) 1 mg Q4H PRN ORAL For Anxiety 04/18/16 18:30 04/25/16 18:29 Magnesium Hydroxide (Mom) 30 ml HSPRN PRN ORAL Constipation 04/18/16 18:30 05/18/16 18:29 Miscellaneous Medication (MULE DRIVER Rate Change) 1 ea DAILY PRN MISC rate change 04/20/16 12:45 04/22/16 12:44 Miscellaneous Medication 1 ea 1 ea Q8HR@07,15,23 MISC 04/20/16 15:00 04/22/16 14:59 04/21/16 07:16 Ondansetron HCl (Zofran) 4 mg Q6H PRN IVP Nausea & Vomiting 04/22/16 12:45 05/22/16 12:44 Ondansetron HCl 4 mg 4 mg Q6H PRN IVP Nausea & Vomiting 04/19/16 18:30 05/19/16 18:29 04/19/16 18:35 Polyethylene Glycol (Miralax) 17 gm HSPRN PRN ORAL Constipation 04/18/16 18:30 05/18/16 18:29 Temazepam (Restoril) 15 mg HSPRN PRN ORAL Insomnia 04/18/16 18:30 04/25/16 18:29 Assessment/Plan Assessment/Plan (1) B/L buttock and back soft tissue necrosis, cellulitis (2) S/p staged debridement of b/l buttock and back necrotic soft tissue, flap delay and vac placement (3) Intractable pain Seen dictated MIRTA BECKFORD Apr 21, 2016 09:04
--- NOTE | 2016-04-21 10:28 | 48 Hour Post Anesthesia Eval ---
Post Anesthesia Evaluation Procedure: Staged Debridement Necrotic Tissue Back an Buttock Date of Evaluation: Apr 21, 2016 Time of Evaluation: 10:50 Blood Pressure Systolic: 95 0: 56 Pulse Rate: 83 Respiratory Rate: 19 Temperature (Fahrenheit): 98.1 O2 Sat by Pulse Oximetry: 95 Airway: patent Vomiting: No Pain Intensity: 2 If pain is > 6 Comment: Patient with nausea... given anti emetic Hydration Status: adequate Cardiopulmonary Status: Stable Mental Status/LOC: patient returned to baseline Follow-up Care/Observations: As per surgery Post-Anesthesia Complications: No anesthetic complication Follow-up care needed: N/A MEHRDAD HARDEN M.D. Apr 21, 2016 10:28
--- NOTE | 2016-04-21 15:09 | General Progress Note ---
Progress Note Progress Note Pt c/o nausea and lightheadedness but reports resolution of pre-op symptoms AF/VSS H/H appropriate PE: VAC in place and functioning VAC output appropriate flaps viable (-) signs infection (-) collections A/P 1. d/c jakub 2. OOB w/ assistance 3. cont abx 4.daily cbc/bmp 5. cont vac and dvt ppx 6. to OR Thur for stage 2/closure 7. frequent position changes 8. type and cross one unit PRBC for possible blood xfusion during second surgery 9. cont SENIOR PHYSICIAN 10. zofran/reglan vs nausea; cont IVF until wed am Kateryna Mello M.D. Apr 21, 2016 15:09
--- NOTE | 2016-04-21 17:51 | General Progress Note ---
Assessment/Plan Problem List: (1) Intractable back pain Assessment & Plan: s/p I+D of buttocks, POD#1 Cont postop care Pain control Supp care f/u expedited lab workup of severe low back pain, s/p gluteal silicone injection , lab workup to r/o WILSON syndrome given classical symptoms and presentation f/u blood cultures Cont IV unasyn A total of 31 minutes of time was spent above and beyond the normal visit time ICD Codes: M54.9 - Dorsalgia, unspecified SNOMED: [id number] Subjective Date patient seen: Apr 21, 2016 Time patient seen: 17:48 ROS Limited/Unobtainable: No Constitutional: Reports: weakness HEENT: Denies: blurred vision, double vision, ear discharge, ear pain, eye pain , mouth pain, mouth swelling, no symptoms, nose congestion, nose pain, other, tearing, throat pain, throat swelling Cardiovascular: Denies: chest pain, edema, irregular heart rate, lightheadedness, no symptoms, other, palpitations, syncope Respiratory: Denies: SOB at rest, SOB with excertion, cough, no symptoms, orthopnea, other, shortness of breath, sputum, stridor, wheezing Gastrointestinal/Abdominal: Reports: nausea Genitourinary: Denies: burning, discharge, flank pain, frequency, hematuria, incontinence, no symptoms, other, pain, urgency Neurologic/Psychiatric: Denies: anxiety, depressed, emotional problems, headache, no symptoms, numbness, other, paresthesia, pre-existing deficit, seizure, tingling, tremors, weakness Endocrine: Denies: excessive sweating, flushing, increased hunger, increased thirst, increased urine, intolerance to cold, intolerance to heat, no symptoms, other, unexplained weight gain, unexplained weight loss Hematologic/Lymphatic: Denies: anemia, easy bleeding, easy bruising, no symptoms, other Allergies: Coded Allergies: AMPICILLIN (Verified Allergy, Unknown, 04/20/16) Nausea vomiting per patient SULBACTAM (Verified Allergy, Unknown, 04/20/16) Nausea vomiting per patient Subjective s/p I+D of buttocks, POD#1, no periop or postop complications. Denies any chest pain or dyspnea, pain is well controlled on current regimen. Does c/o some gen weakness and nausea earlier today, but currently feels much better. Objective Last 24 Hour Vital Signs Date Time Temp Pulse Resp B/P Pulse Ox O2 Delivery O2 Flow Rate FiO2 04/21/16 13:35 18 111/72 97 Nasal Cannula 2.0 04/21/16 12:15 20 100/56 95 Room Air 04/21/16 12:11 98.4 98 19 86/46 95 Nasal Cannula 2.0 04/21/16 10:28 83 19 95 04/21/16 08:00 98.1 83 19 95/56 95 Room Air 04/21/16 07:56 16 04/21/16 04:00 97.7 82 20 103/63 97 Room Air 04/21/16 03:32 16 04/21/16 00:00 97.5 89 20 106/57 99 Room Air 04/20/16 23:34 16 04/20/16 20:34 97.8 89 20 98/58 99 Room Air 04/20/16 19:32 16 Intake and Output 04/20/16 04/21/16 19:00 07:00 Intake Total 1000 ml 480 ml Output Total 550 ml 850 ml Balance 450 ml -370 ml Intake Oral 480 ml IV Total 1000 ml Output Urine Total 300 ml 850 ml Estimated Blood Loss 200 ml Other 50 ml Laboratory Tests 04/21/16 06:20: White Blood Count 8.4, Red Blood Count 3.93L, Hemoglobin 11.4L, Hematocrit 34.0L , Mean Corpuscular Volume 87, Mean Corpuscular Hemoglobin 29.0, Mean Corpuscular Hemoglobin Concent 33.5, Red Cell Distribution Width 11.5L, Platelet Count 318, Mean Platelet Volume 7.3, Neutrophils (%) (Auto) 72.2, Lymphocytes (%) (Auto) 20.7, Monocytes (%) (Auto) 6.3, Eosinophils (%) (Auto) 0.3, Basophils (%) (Auto) 0.5, Sodium Level 137, Potassium Level 4.0, Chloride Level 100, Carbon Dioxide Level 28, Anion Gap 9, Blood Urea Nitrogen 7, Creatinine 0.5, Estimat Glomerular Filtration Rate > 60, Glucose Level 100, Calcium Level 8.6 Height (Feet): 5 Height (Inches): 1.00 Weight (Pounds): 140 General Appearance: WD/WN, no apparent distress, alert EENT: PERRL/EOMI, normal ENT inspection Neck: non-tender Cardiovascular: normal peripheral pulses, normal rate, regular rhythm, no gallop/murmur Respiratory/Chest: chest wall non-tender, lungs clear, normal breath sounds, no respiratory distress, no accessory muscle use Abdomen: normal bowel sounds, non tender, soft Extremities: normal range of motion, non-tender, normal inspection Edema: no edema noted Arm (L), no edema noted Arm (R), no edema noted Leg (L), no edema noted Leg (R), no edema noted Pedal (L), no edema noted Pedal (R), no edema noted Generalized Neurologic: alert, oriented x 3, responsive, normal mood/affect Skin: normal pigmentation, warm/dry, no diaphoresis LEISA CHILDRESS Apr 21, 2016 17:51
--- NOTE | 2016-04-21 23:28 | Consultation ---
DATE OF CONSULTATION: 04/21/2016 PAIN MANAGEMENT CONSULTATION CONSULTING PHYSICIAN: Cliff Ardon M.D. REFERRING PHYSICIAN: Brook Jackman M.D. PHYSICIAN WAISTBAND SETTER LOCKSTITCH: Houston Hunter CHIEF COMPLAINT: Back and buttock pain. HISTORY OF PRESENT ILLNESS: This is a 25-year-old female, who is being seen in the Med/Surg floor of [facility] for initial comprehensive pain management consultation. The patient reported that she has been having pain in the back and buttock area. She is status post stage debridement of bilateral buttock and back necrotic soft tissue flaps delayed and back placement due to necrosis and cellulitis and was started on a SCRIBING MACHINE OPERATOR Dilaudid 0.2 mg lockout internal every six minutes and Dilaudid 2 mg IV every 4 hours as needed for moderate pain and Dilaudid 2 mg subcutaneous every 3 hours as needed for severe pain. At this time, the patient's pain is comfortable on the current medication regimen and is doing well and has no side effects or other complaints. PAST MEDICAL HISTORY: Denies. PAST SURGICAL HISTORY: Denies. MEDICATIONS: She does not take medications. ALLERGIES: Ampicillin and . SOCIAL HISTORY: Denies smoking tobacco, drinking alcohol, or IV drug abuse. REVIEW OF SYSTEMS: Denies rash, fever, chills, sweating, dizziness, drowsiness, blurred vision, sore throat, or change in weight. No shortness of breath or chest pain. No nausea, vomiting, diarrhea, or blood in the stool or urine. No bowel or bladder incontinence. No dysuria. She is complaining of buttock pain and low back pain. PHYSICAL EXAMINATION: GENERAL: Alert and oriented x3. VITAL SIGNS: Blood pressure , heart rate is 83, oxygen saturation 95%, respiratory rate is 19, and temperature is 98.1 degrees Fahrenheit. Height is 5 feet 1 inch and weight 140 pounds. HEENT: PERRLA. NECK: Range of motion is full in all directions. No tenderness to paracervical muscles. No adenopathy. LUNGS: Clear. HEART: Regular. ABDOMEN: Benign. BACK: Range of motion is decreased in flexion and extension with tenderness to the paraspinal muscles with bandages noted. Wound VAC applied to the buttock area. EXTREMITY: Range motion is full in all directions. Motor is intact. No cyanosis. No clubbing. No edema. Sensory is intact. Reflexes are not obtainable. No adenopathy. Lower extremity range of motion is decreased due to the patient's clinical condition. Motor is intact. No cyanosis. No clubbing. No edema. Sensory is intact. Reflexes are not obtainable. No adenopathy. ASSESSMENT AND PLAN: This is a 25-year-old female with bilateral buttock and back soft tissue necrosis and cellulitis status post stage debridement of bilateral buttock and back necrotic soft tissue flaps delayed back placement intractable pain. The patient will be continued on the SCRIBING MACHINE OPERATOR Dilaudid and Dilaudid subcutaneous and intravenous. The patient was discussed with Dr. Ardon and Dr. Ardon concurred. We will follow up with the patient. Thank you much for the courtesy of this consultation. Cliff Ardon M.D. MITRA Hunter DR: MARIA ELENA JOB#: [id number] CC:
[2016-04-22] VITALS: BP 91/53
[2016-04-22 04:00] VITALS: BP 98/61
[2016-04-22] MEDS: LR 1000ml 1,000 ML IV SCH ×2 (05:49→14:54)
[2016-04-22] MEDS: Heparin 5000 units/ml inj SUBQ SCH ×3 (05:52→22:00)
[2016-04-22] MEDS: PCA shift volume MISC SCH ×4 (07:21→23:17)
[2016-04-22 08:00] VITALS: BP 93/58
--- NOTE | 2016-04-22 08:05 | General Progress Note ---
Assessment/Plan Assessment/Plan (1) B/L buttock and back soft tissue necrosis, cellulitis (2) S/p staged debridement of b/l buttock and back necrotic soft tissue, flap delay and vac placement (3) Intractable pain The patient will continue on the ORTHOTIC PRACTITIONER Dilaudid, Dilaudid IV SubQ The patient was discussed with Dr. Ardon and Dr. Ardon concurred. Subjective Date patient seen: Apr 22, 2016 Time patient seen: 08:15 - am Allergies: Coded Allergies: AMPICILLIN (Verified Allergy, Unknown, 04/20/16) Nausea vomiting per patient SULBACTAM (Verified Allergy, Unknown, 04/20/16) Nausea vomiting per patient Subjective REVIEW OF SYSTEMS: Denies rash, fever, chills, sweating, dizziness, drowsiness, blurred vision, sore throat, or change in her weight. No shortness of breath or chest pain. No nausea, vomiting, diarrhea, or blood in the stool or urine. No bowel or bladder incontinence. No dysuria. Complaining of back and buttock pain. SUBJECTIVE: Pt is in bed laying on her stomach, No pain at rest. The pain is aggravated with pressure and while on the medication pain is a mild level. Objective Last 24 Hour Vital Signs Date Time Temp Pulse Resp B/P Pulse Ox O2 Delivery O2 Flow Rate FiO2 04/22/16 04:00 16 04/22/16 04:00 99.3 112 18 98/61 98 Room Air 04/22/16 00:00 99.0 103 18 91/53 98 Room Air 04/22/16 00:00 17 04/21/16 20:00 16 04/21/16 20:00 98.6 90 17 90/58 Room Air 04/21/16 16:00 97.7 107 18 100/63 99 Room Air 04/21/16 13:35 18 111/72 97 Nasal Cannula 2.0 04/21/16 12:15 20 100/56 95 Room Air 04/21/16 12:11 98.4 98 19 86/46 95 Nasal Cannula 2.0 04/21/16 10:28 83 19 95 Intake and Output 04/21/16 04/22/16 19:00 07:00 Intake Total 240 ml 1220 ml Output Total 1525 ml 1720 ml Balance -1285 ml -500 ml Intake Oral 240 ml 420 ml IV Total 800 ml Output Urine Total 1300 ml 1650 ml Drainage Total 10 ml Other 225 ml 60 ml # Voids 3 Height (Feet): 5 Height (Inches): 1.00 Weight (Pounds): 140 Objective GENERAL: Alert, awake, and oriented x3. HEENT: PERRLA. NECK: Range of motion is full in all directions. No tenderness to the paracervical muscles. No adenopathy. LUNGS: Clear. HEART: Regular. ABDOMEN: Benign. BACK: Range of motion is decreased in flexion and extension with tenderness to paraspinal muscles with wound VAC seen and placed with tenderness to palpation on the buttock area. EXTREMITIES: No cyanosis. No clubbing. No edema. NEURO: No changes. MIRTA BECKFORD Apr 22, 2016 08:05
[2016-04-22] MEDS ORDERED: Rate Change PCA 1 Each MISC PRN (08:15)
[2016-04-22] MEDS: Docusate 100mg cap ORAL SCH ×2 (08:39→21:17)
[2016-04-22 09:35] LABS: A/G RATIO 1.3 (0.7-1.7); ABNORMAL PROTEIN BAND 1 Not Observed g/dL (Not Observed); ALBUMIN 3.6 g/dL (2.9-4.4); ALPHA-1 GLOBULIN 0.2 g/dL (0.0-0.4); ALPHA-2 GLOBULIN 0.6 g/dL (0.4-1.0); ANGIOTENSIN CONVERTING ENZYME 61 U/L (14-82); BETA GLOBULIN 0.8 g/dL (0.7-1.3); CD3 ABSOLUTE 1613 /uL (622-2402); CD4 ABSOLUTE 979 /uL (359-1519); CD8 ABSOLUTE 623 /uL (109-897); GAMMA GLOBULIN 1.2 g/dL (0.4-1.8); GLOBULIN, TOTAL 2.8 g/dL (2.2-3.9); IMMUNCOMPLEX BY C1Q BINDING < 1.2 ug Eq/mL (.); LYMPHOCYTES ABSOLUTE 2.2 x10E3/uL (0.7-3.1); LYMPHS 50 % (.); SS-B/La SJOGRENS ANTIBODY <0.2 AI (0.0-0.9); SSA/Ro SJOGRENS ANTIBODY 3.2 AI (0.0-0.9); TOTAL PROTEIN 6.4 g/dL (6.0-8.5); WBC 4.4 x10E3/uL (3.4-10.8)
--- NOTE | 2016-04-22 10:49 | General Progress Note ---
Progress Note Progress Note Pt without and c/o today; nausea resolved (-) OOB AF/VSS H/Hstable PE: buttock and back flaps viable (-) collections (-) signs infection VACs functioning A/P 1. repeat am CBC; type and cross 1 U prbc 2. OOB, DVT ppx; Abx 3. NPO after MN; IVF after Mn 4. to OR Thur for staged debridement of b/l buttocks necrotic soft tissue and flap closure 5. freq position changes; 6. VAC troubleshooted; VAC not to be changed, only fixed Kateryna Mello M.D. Apr 22, 2016 10:49
[2016-04-22 12:00] VITALS: BP 95/58
[2016-04-22] MEDS ORDERED: PCA HYDROmorphone 1mg/ml 30 ML IV PRN (12:45)
--- NOTE | 2016-04-22 13:06 | Anethesia Preoperative Eval ---
Anesthesia Pre-op PMH/ROS General Date of Evaluation: Apr 22, 2016 Anesthesiologist: Yonatan ASA Score: ASA 1 Mallampati Score Class I : Soft palate, uvula, fauces, pillars visible Class II: Soft palate, uvula, fauces visible Class III: Soft palate, base of uvula visible Class IV: Only hard plate visible Mallampati Classification: Class I Surgeon: Riaz Diagnosis: Asbcess buttock and back Surgical Procedure: Stage 2 debriedment and closure of soft tissue abscess low back/buttocks Anesthesia History: none Family History: no anesthesia problems Allergies: Coded Allergies: AMPICILLIN (Verified Allergy, Unknown, 04/20/16) Nausea vomiting per patient SULBACTAM (Verified Allergy, Unknown, 04/20/16) Nausea vomiting per patient Medications: see eMAR Past Medical History Cardiovascular: Denies: CAD, HTN, [place], arrhythmia, other, valve dz Pulmonary: Denies: COPD, [place], asthma, other Gastrointestinal/Genitourinary: Denies: CRI, ESRD, GERD, other Neurologic/Psychiatric: Denies: CVA, TIA, dementia, depression/anxiety, other Endocrine: Denies: DM, hypothyroidism, other, steroids HEENT: Denies: [place] (L), [place] (R), cataract (L), cataract (R), glaucoma, other Hematology/Immune: Reports: other - necrotic soft tissue abscess low back and buttocks Musculoskeletal/Integumentary: Denies: DDD, DJD, OA, RA, edema, other PSxH Narrative: I&D low back/buttocks Anesthesia Pre-op Phys. Exam Physician Exam Last Vital Signs Date Time Temp Pulse Resp B/P Pulse Ox O2 Delivery O2 Flow Rate FiO2 04/22/16 12:00 98.2 104 19 95/58 94 Room Air 04/21/16 13:35 2.0 Constitutional: NAD Cardiovascular: RRR Respiratory: CTA Airway Exam Mallampati Score: Class I MO: full ROM: full Teeth: intact Anesthesia Pre-op A/P Labs see chart Risk Assessment & Plan Assessment: ASA I Plan: GA Status Change Before Surgery: No Pre-Antibiotics Drug: SKYLAR GOODEN M.D. Apr 22, 2016 13:06
[2016-04-22 16:13] VITALS: BP 99/58
--- NOTE | 2016-04-22 19:31 | General Progress Note ---
Assessment/Plan Problem List: (1) Intractable back pain Assessment & Plan: s/p I+D of buttocks, POD#2 Cont postop care Pain control Supp care f/u expedited lab workup of severe low back pain, s/p gluteal silicone injection , lab workup to r/o WILSON syndrome given classical symptoms and presentation f/u blood cultures Cont IV unasyn A total of 31 minutes of time was spent above and beyond the normal visit time ICD Codes: M54.9 - Dorsalgia, unspecified SNOMED: 111965203 Subjective Date patient seen: Apr 22, 2016 Time patient seen: 19:30 ROS Limited/Unobtainable: No Allergies: Coded Allergies: AMPICILLIN (Verified Allergy, Unknown, 04/20/16) Nausea vomiting per patient SULBACTAM (Verified Allergy, Unknown, 04/20/16) Nausea vomiting per patient Subjective s/p I+D of buttocks, POD#2, no periop or postop complications. Denies any chest pain or dyspnea, pain is well controlled on current regimen. Does c/o some gen weakness and nausea earlier today, but currently feels much better. Objective Last 24 Hour Vital Signs Date Time Temp Pulse Resp B/P Pulse Ox O2 Delivery O2 Flow Rate FiO2 04/22/16 16:13 99.9 104 18 99/58 100 Room Air 04/22/16 12:00 98.2 104 19 95/58 94 Room Air 04/22/16 12:00 20 04/22/16 08:00 99.0 98 20 93/58 95 Room Air 04/22/16 08:00 20 04/22/16 04:00 16 04/22/16 04:00 99.3 112 18 98/61 98 Room Air 04/22/16 00:00 99.0 103 18 91/53 98 Room Air 04/22/16 00:00 17 04/21/16 20:00 16 04/21/16 20:00 98.6 90 17 90/58 Room Air Intake and Output 04/21/16 04/22/16 19:00 07:00 Intake Total 240 ml 1220 ml Output Total 1525 ml 1720 ml Balance -1285 ml -500 ml Intake Oral 240 ml 420 ml IV Total 800 ml Output Urine Total 1300 ml 1650 ml Drainage Total 10 ml Other 225 ml 60 ml # Voids 3 Height (Feet): 5 Height (Inches): 1.00 Weight (Pounds): 140 General Appearance: WD/WN, no apparent distress, alert EENT: PERRL/EOMI, normal ENT inspection Neck: non-tender, normal alignment, supple Cardiovascular: normal peripheral pulses, normal rate, regular rhythm, no gallop/murmur Respiratory/Chest: chest wall non-tender, lungs clear, normal breath sounds, no respiratory distress Abdomen: normal bowel sounds, non tender, soft Extremities: normal range of motion, non-tender, normal inspection Neurologic: alert, oriented x 3, responsive, normal mood/affect Skin: normal pigmentation, warm/dry, no diaphoresis LEISA CHILDRESS Apr 22, 2016 19:31
[2016-04-22 20:00] VITALS: BP 91/52
--- NOTE | 2016-04-22 22:07 | Progress Note ---
SUBJECTIVE: The patient is doing well, however, she has lower back pain. There has not been any behavior issues. The patient is calm and cooperative. The patient has been affect is adequate. No behavior issues and cooperative with the staff. MENTAL STATUS EXAMINATION: Alert and oriented x4. Mood is depressed. Affect is constricted. Congruent with mood. Thought process is concrete. Thought content, there is no suicidal or homicidal ideation. ASSESSMENT: Stable. PLAN: 1. The patient will be continued on current medication. 2. Provide the patient with supportive therapy and reality orientation. Maria Guadalupe King M.D. DR: ELEONORA JOB#: [id number] CC:
[2016-04-23] VITALS (13 sets, daily range): BP systolic 76–125; BP diastolic 50–82
[2016-04-23] MEDS: LR 1000ml 1,000 ML IV SCH ×4 (04:24→21:43)
[2016-04-23] MEDS: Heparin 5000 units/ml inj SUBQ SCH ×3 (05:46→21:42)
--- NOTE | 2016-04-23 07:18 | Immediate Post-Op Evaluation ---
Immediate Post-Op Evalulation Immediate Post-Op Evalulation Procedure: Staged Debridement Necrotic Tissue Back an Buttock Date of Evaluation: Apr 23, 2016 Time of Evaluation: 10:56 IV Fluids: 1.1L Blood Products: 0 Estimated Blood Loss: 150 Urinary Output: 0 Blood Pressure Systolic: 94 Blood Pressure Diastolic: 63 Pulse Rate: 84 Respiratory Rate: 16 O2 Sat by Pulse Oximetry: 100 Temperature (Fahrenheit): 97.1 Pain Score (1-10): 0 Nausea: No Vomiting: No Complications 0 Patient Status: awake, reacts, patent, none Hydration Status: adequate Drug: Clindamycin 900mg Given Within 1 Hr of Incision: Yes Time Given: 08:00 SKYLAR WEBER M.D. Apr 23, 2016 07:18
[2016-04-23] MEDS ORDERED: LR 1000ml 1,000 ML IVLG SCH (07:19)
[2016-04-23] MEDS ORDERED: DiphenhydrAMINE 50mg/ml Inj IVP PRN (07:30)
[2016-04-23] MEDS: PCA shift volume MISC SCH ×3 (07:30→23:00)
[2016-04-23] MEDS ORDERED: Metoclopramide 10mg/2ml Inj IVP PRN (07:30)
[2016-04-23] MEDS ORDERED: Ketorolac 30mg Inj IV PRN (07:30)
[2016-04-23] MEDS ORDERED: Midazolam 2mg/2ml Inj IVP PRN (07:30)
[2016-04-23] MEDS ORDERED: Hydromorphone 0.5mg/0.5ml inj IVP PRN (07:30)
[2016-04-23] MEDS ORDERED: fentaNYL 100 mcg/2 mL IV PRN (07:30)
[2016-04-23] MEDS ORDERED: LORazepam Inj 2mg/ml 1ml IV PRN (07:30)
[2016-04-23] MEDS ORDERED: Labetalol 5mg/ml 20ml vial IV PRN (07:30)
[2016-04-23] MEDS ORDERED: Zemuron 50mg/5ml Inj IV ONE (07:45)
[2016-04-23] MEDS ORDERED: Midazolam 2mg/2ml Inj ONE (07:45)
[2016-04-23] MEDS ORDERED: Metoclopramide 10mg/2ml Inj ONE (07:45)
[2016-04-23] MEDS ORDERED: Propofol 10mg/ml 20ml IV ONE (07:45)
[2016-04-23] MEDS ORDERED: NS Irrig 1000ml ONE (07:45)
[2016-04-23] MEDS ORDERED: Lidocaine 1% MPF 10mg/ml 5ml ONE (07:45)
[2016-04-23] MEDS ORDERED: fentaNYL 250mcg/5ml ONE (07:45)
[2016-04-23] MEDS ORDERED: LR 1000ml ONE ×2 (07:45→15:50)
[2016-04-23] MEDS ORDERED: Sterile Water Irrig 1000ml IRRIG ONE (07:45)
[2016-04-23] MEDS ORDERED: Bacitracin 50000 Units Vial ONE (07:45)
--- NOTE | 2016-04-23 07:46 | Pre-Procedure Note/Attestation ---
Pre-Procedure Note/Attestation Complete Prior to Procedure Planned Procedure: bilateral Procedure Narrative: staged debridement of b/l buttock/hip necrotic soft tissue and flap closure Indications for Procedure Pre-Operative Diagnosis: bilateral buttock and back soft tissue necrosis; cellulitis Attestation I attest that I discussed the nature of the procedure; its benefits; risks and complications; and alternatives (and the risks and benefits of such alternatives ), prior to the procedure, with the patient (or the patient's legal sales utility representative). I attest that, if there was a reasonable possibility of needing a blood transfusion, the patient (or the patient's legal sales utility representative) was given the [place] Department [employer] standardized written summary, pursuant to the [place] Blood Safety Act ([place] Health and Safety Code # 1645, as amended). I attest that I re-evaluated the patient just prior to the surgery and that there has been no change in the patient's H&P, except as documented below: Kateryna Mello M.D. Apr 23, 2016 07:46
[2016-04-23] MEDS ORDERED: Clindamycin 4 ML ONE (07:49)
[2016-04-23] MEDS ORDERED: NS Irrig 1000ml IRRIG ONE (07:50)
--- NOTE | 2016-04-23 08:38 | General Progress Note ---
Assessment/Plan Assessment/Plan (1) B/L buttock and back soft tissue necrosis, cellulitis (2) S/p staged debridement of b/l buttock and back necrotic soft tissue, flap delay and vac placement (3) Intractable pain The patient will continue on the GARNISHER Dilaudid, Dilaudid IV SubQ The patient was discussed with Dr. Ardon and Dr. Ardon concurred. Subjective Date patient seen: Apr 23, 2016 Time patient seen: 06:30 - am Allergies: Coded Allergies: AMPICILLIN (Verified Allergy, Unknown, 04/20/16) Nausea vomiting per patient SULBACTAM (Verified Allergy, Unknown, 04/20/16) Nausea vomiting per patient Subjective REVIEW OF SYSTEMS: Denies rash, fever, chills, sweating, dizziness, drowsiness, blurred vision, sore throat, or change in her weight. No shortness of breath or chest pain. No nausea, vomiting, diarrhea, or blood in the stool or urine. No bowel or bladder incontinence. No dysuria. Complaining of back and buttock pain. SUBJECTIVE: Pt is comfortable at this time and is looking forward to surgery today. Her pain is stable on the medications. Objective Last 24 Hour Vital Signs Date Time Temp Pulse Resp B/P Pulse Ox O2 Delivery O2 Flow Rate FiO2 04/23/16 04:00 16 04/23/16 00:00 97.7 97 18 98/56 97 Room Air 04/23/16 00:00 18 04/22/16 20:00 18 04/22/16 20:00 97.9 89 21 91/52 98 Room Air 04/22/16 16:13 99.9 104 18 99/58 100 Room Air 04/22/16 16:00 18 04/22/16 12:00 98.2 104 19 95/58 94 Room Air 04/22/16 12:00 20 Intake and Output 04/22/16 04/23/16 19:00 07:00 Intake Total 820 ml 1450 ml Output Total 125 ml Balance 820 ml 1325 ml Intake Oral 120 ml 150 ml IV Total 700 ml 1300 ml Other 125 ml # Voids 1 5 Height (Feet): 5 Height (Inches): 1.00 Weight (Pounds): 140 Objective GENERAL: Alert, awake, and oriented x3. HEENT: PERRLA. NECK: Range of motion is full in all directions. No tenderness to the paracervical muscles. No adenopathy. LUNGS: Clear. HEART: Regular. ABDOMEN: Benign. BACK: Range of motion is decreased in flexion and extension with tenderness to paraspinal muscles with wound VAC seen and placed with tenderness to palpation on the buttock area. EXTREMITIES: No cyanosis. No clubbing. No edema. NEURO: No changes. MIRTA BECKFORD. Apr 23, 2016 08:38
[2016-04-23] MEDS: Docusate 100mg cap ORAL SCH ×2 (09:00→21:40)
[2016-04-23] MEDS: Meperidine 50mg/ml Inj IVP ONE ×2 (10:10→11:10)
--- NOTE | 2016-04-23 10:54 | Operative Note - PDOC ---
Operative Note Operative Note Pre-op Diagnosis: bilateral buttock and back soft tissue necrosis; cellulitis Procedure: staged debridement of bilateral buttock and back soft tissue necrosis; flap delay and vac placement Post-op Diagnosis: bilateral buttock and back soft tissue necrosis Post-op Diagnosis: same as pre-op Surgeon: radha Extracorporeal Circulation Specialist: jayson Additional Surgeons: marcia Anesthesiologist: merlyn Anesthesia: general Specimen: yes Complications: none Condition: stable Estimated Blood Loss: volume - 300 Drains: wound vac Kateryna Mello M.D. Apr 23, 2016 10:54
[2016-04-23] MEDS ORDERED: PCA HYDROmorphone 1mg/ml 30 ML IV PRN (11:00)
[2016-04-23] MEDS ORDERED: Rate Change PCA 1 Each MISC PRN (11:00)
--- NOTE | 2016-04-23 11:03 | Operative Note - PDOC ---
Operative Note Operative Note Pre-op Diagnosis: bilateral buttock and back soft tissue necrosis; cellulitis Procedure: staged debridement of bilateral buttock and back soft tissue necrosis; advancement flap closure Post-op Diagnosis: bilateral buttock and back soft tissue necrosis Post-op Diagnosis: same as pre-op Surgeon: radha Mold Cutting Machine Operator: jayson Additional Surgeons: marcia Anesthesiologist: Juan Anesthesia: general Specimen: yes Complications: none Condition: stable Estimated Blood Loss: volume - 200 Drains: KAE Implant(s) used?: No Kateryna Mello M.D. Apr 23, 2016 11:03
[2016-04-23] MEDS ORDERED: Meperidine 25mg/ml Inj ONE (11:12)
--- NOTE | 2016-04-23 14:57 | General Progress Note ---
Assessment/Plan Problem List: (1) Intractable back pain Assessment & Plan: s/p I+D of buttocks, POD#3 s/p stage 2 debridement earlier today Cont postop care Pain control Supp care f/u expedited lab workup of severe low back pain, s/p gluteal silicone injection , lab workup to r/o WILSON syndrome given classical symptoms and presentation f/u blood cultures Cont IV unasyn A total of 31 minutes of time was spent above and beyond the normal visit time ICD Codes: M54.9 - Dorsalgia, unspecified SNOMED: 521021008 Subjective Date patient seen: Apr 23, 2016 Time patient seen: 14:56 ROS Limited/Unobtainable: No Constitutional: Denies: chills, diaphoresis, fever, malaise, no symptoms, other , weakness HEENT: Denies: blurred vision, double vision, ear discharge, ear pain, eye pain , mouth pain, mouth swelling, no symptoms, nose congestion, nose pain, other, tearing, throat pain, throat swelling Cardiovascular: Denies: chest pain, edema, irregular heart rate, lightheadedness, no symptoms, other, palpitations, syncope Respiratory: Denies: SOB at rest, SOB with excertion, cough, no symptoms, orthopnea, other, shortness of breath, sputum, stridor, wheezing Gastrointestinal/Abdominal: Denies: abdomen distended, abdominal pain, black stools, blood in stool, constipated, diarrhea, difficulty swallowing, nausea, no symptoms, other, poor appetite, poor fluid intake, rectal bleeding, tarry stools, vomiting Genitourinary: Denies: burning, discharge, flank pain, frequency, hematuria, incontinence, no symptoms, other, pain, urgency Neurologic/Psychiatric: Denies: anxiety, depressed, emotional problems, headache, no symptoms, numbness, other, paresthesia, pre-existing deficit, seizure, tingling, tremors, weakness Endocrine: Denies: excessive sweating, flushing, increased hunger, increased thirst, increased urine, intolerance to cold, intolerance to heat, no symptoms, other, unexplained weight gain, unexplained weight loss Hematologic/Lymphatic: Denies: anemia, easy bleeding, easy bruising, no symptoms, other Allergies: Coded Allergies: AMPICILLIN (Verified Allergy, Unknown, 04/20/16) Nausea vomiting per patient SULBACTAM (Verified Allergy, Unknown, 04/20/16) Nausea vomiting per patient Subjective s/p I+D of buttocks POD#3, now s/p stage 2 debridement of buttocks POD#0, no periop or postop complications. Denies any chest pain or dyspnea, pain is well controlled on current regimen. Objective Last 24 Hour Vital Signs Date Time Temp Pulse Resp B/P Pulse Ox O2 Delivery O2 Flow Rate FiO2 04/23/16 12:30 16 04/23/16 12:20 98.1 81 20 104/58 100 Nasal Cannula 2.0 04/23/16 12:18 97.1 04/23/16 12:15 16 04/23/16 12:10 75 16 108/63 100 Nasal Cannula 3.0 04/23/16 12:00 15 04/23/16 11:55 76 15 112/63 100 Nasal Cannula 3.0 04/23/16 11:48 16 04/23/16 11:40 75 16 112/63 100 Simple Mask 6.0 04/23/16 11:40 97.1 04/23/16 11:25 79 17 112/68 100 Simple Mask 6.0 04/23/16 11:10 95 17 125/68 100 Simple Mask 6.0 04/23/16 11:00 118 15 115/82 100 Simple Mask 6.0 04/23/16 10:55 100 17 76/50 97 Simple Mask 6.0 04/23/16 10:53 84 16 100 04/23/16 10:51 97.1 84 17 94/63 97 Simple Mask 6.0 04/23/16 04:00 16 04/23/16 00:00 97.7 97 18 98/56 97 Room Air 04/23/16 00:00 18 04/22/16 20:00 18 04/22/16 20:00 97.9 89 21 91/52 98 Room Air 04/22/16 16:13 99.9 104 18 99/58 100 Room Air 04/22/16 16:00 18 Intake and Output 04/22/16 04/23/16 19:00 07:00 Intake Total 820 ml 1450 ml Output Total 125 ml Balance 820 ml 1325 ml Intake Oral 120 ml 150 ml IV Total 700 ml 1300 ml Other 125 ml # Voids 1 5 Height (Feet): 5 Height (Inches): 1.00 Weight (Pounds): 140 Objective General: alert, cooperative, no distress, appears stated age Head: normocephalic, without obvious abnormality, atraumatic Eyes: conjunctivae/corneas clear. PERRL, EOM's intact Throat: lips, mucosa, and tongue normal. MMM Neck: supple, symmetrical, trachea midline, and no JVD Lungs: clear to auscultation bilaterally Heart: regular rate and rhythm, S1, S2 normal, no murmur, click, rub or gallop Abdomen: soft, non-tender, non-distended, bowel sounds normal; no masses or organomegaly Extremities: extremities normal, atraumatic, no cyanosis or edema Pulses: 2+ and symmetric Skin: skin color, texture, turgor normal; no rashes or lesions Neurologic: grossly normal, no focal deficits LEISA CHILDRESS Apr 23, 2016 14:57
[2016-04-23] MEDS ORDERED: Tubing IV Secondary IV ONE (15:50)
[2016-04-23] MEDS ORDERED: NS 275ml ONE (15:50)
[2016-04-24 00:48] VITALS: BP 103/56
[2016-04-24 04:00] VITALS: BP 106/50
[2016-04-24 04:42] LABS: BASOPHILS % (AUTO) 0.4 % (0.0-2.0); EOSINOPHILS % (AUTO) 0.2 % (0.0-3.0); LYMPHOCYTES % (AUTO) 16.9 % (20.0-45.0); MEAN CORPUSCULAR HEMOGLOBIN 29.6 PG (27.0-31.0); MEAN CORPUSCULAR HGB CONC 34.2 G/DL (32.0-36.0); MEAN CORPUSCULAR VOLUME 87 FL (80-99); MEAN PLATELET VOLUME 7.4 FL (6.5-10.1); MONOCYTES % (AUTO) 10.2 % (1.0-10.0); NEUTROPHILS % (AUTO) 72.4 % (45.0-75.0); PLATELET COUNT 271 K/UL (150-450); RED BLOOD COUNT 3.01 M/UL (4.20-5.40); RED CELL DISTRIBUTION WIDTH 11.6 % (11.6-14.8); WHITE BLOOD COUNT 8.2 K/UL (4.8-10.8)
[2016-04-24 04:46] LABS: ANION GAP 11 (5-15); CALCIUM 8.3 mg/dL (8.6-10.2); CARBON DIOXIDE 26 mEQ/L (20-30); CHLORIDE 103 mEQ/L (98-107); CREATININE 0.4 mg/dL (0.5-0.9); GLOMERULAR FILTRATION RATE > 60 mL/min (>60); HEMOLYSIS 2; POTASSIUM 3.7 mEQ/L (3.4-4.9); SODIUM 140 mEQ/L (135-145)
[2016-04-24] MEDS: Heparin 5000 units/ml inj SUBQ SCH ×3 (05:09→21:54)
[2016-04-24] MEDS: PCA shift volume MISC SCH ×3 (07:02→23:30)
[2016-04-24 08:00] VITALS: BP 99/61
[2016-04-24] MEDS: LR 1000ml 1,000 ML IV SCH ×2 (08:02→17:50)
[2016-04-24] MEDS: Docusate 100mg cap ORAL SCH ×2 (08:03→20:39)
--- NOTE | 2016-04-24 09:25 | General Progress Note ---
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 The patient was discussed with Dr. Ardon and Dr. Ardon concurred. Subjective Date patient seen: Apr 24, 2016 Time patient seen: 07:00 - am Allergies: Coded Allergies: AMPICILLIN (Verified Allergy, Unknown, 04/20/16) Nausea vomiting per patient SULBACTAM (Verified Allergy, Unknown, 04/20/16) Nausea vomiting per patient Subjective REVIEW OF SYSTEMS: Denies rash, fever, chills, sweating, dizziness, drowsiness, blurred vision, sore throat, or change in her weight. No shortness of breath or chest pain. No nausea, vomiting, diarrhea, or blood in the stool or urine. No bowel or bladder incontinence. No dysuria. Complaining of back and buttock pain. SUBJECTIVE: Pain has been a 1/10 using 4.4 mg of SCHEDULE ANALYST dilaudid. She is comfortable. RX will be written in anticipation for discharge. Objective Last 24 Hour Vital Signs Date Time Temp Pulse Resp B/P Pulse Ox O2 Delivery O2 Flow Rate FiO2 04/24/16 04:00 97.9 87 19 106/50 95 Room Air 04/24/16 04:00 18 04/24/16 00:48 98.1 93 19 103/56 97 Room Air 04/24/16 00:00 18 04/23/16 20:00 18 04/23/16 20:00 97.2 108 20 102/51 96 Room Air 04/23/16 16:04 97.7 93 18 105/56 97 Room Air 04/23/16 16:00 18 04/23/16 13:20 97.7 91 20 106/63 100 Nasal Cannula 04/23/16 12:30 16 04/23/16 12:20 98.1 81 20 104/58 100 Nasal Cannula 2.0 04/23/16 12:18 97.1 04/23/16 12:15 16 04/23/16 12:10 75 16 108/63 100 Nasal Cannula 3.0 04/23/16 12:00 15 04/23/16 11:55 76 15 112/63 100 Nasal Cannula 3.0 04/23/16 11:48 16 04/23/16 11:40 75 16 112/63 100 Simple Mask 6.0 04/23/16 11:40 97.1 04/23/16 11:25 79 17 112/68 100 Simple Mask 6.0 04/23/16 11:10 95 17 125/68 100 Simple Mask 6.0 04/23/16 11:00 118 15 115/82 100 Simple Mask 6.0 04/23/16 10:55 100 17 76/50 97 Simple Mask 6.0 04/23/16 10:53 84 16 100 04/23/16 10:51 97.1 84 17 94/63 97 Simple Mask 6.0 Intake and Output 04/23/16 04/24/16 19:00 07:00 Intake Total 2000 ml 850 ml Output Total 539 ml 325 ml Balance 1461 ml 525 ml IV Total 2000 ml 850 ml Output Urine Total 250 ml 0 ml Drainage Total 132 ml 325 ml Estimated Blood Loss 150 ml Other 7 ml 0 ml # Voids 1 Laboratory Tests 04/24/16 04:00: White Blood Count 8.2, Red Blood Count 3.01L, Hemoglobin 8.9L, Hematocrit 26.1L , Mean Corpuscular Volume 87, Mean Corpuscular Hemoglobin 29.6, Mean Corpuscular Hemoglobin Concent 34.2, Red Cell Distribution Width 11.6, Platelet Count 271, Mean Platelet Volume 7.4, Neutrophils (%) (Auto) 72.4, Lymphocytes (% ) (Auto) 16.9L, Monocytes (%) (Auto) 10.2H, Eosinophils (%) (Auto) 0.2, Basophils (%) (Auto) 0.4, Sodium Level 140, Potassium Level 3.7, Chloride Level 103, Carbon Dioxide Level 26, Anion Gap 11, Blood Urea Nitrogen 4L, Creatinine 0.4L, Estimat Glomerular Filtration Rate > 60, Glucose Level 102, Calcium Level 8.3L Height (Feet): 5 Height (Inches): 1.00 Weight (Pounds): 140 Objective GENERAL: Alert, awake, and oriented x3. HEENT: PERRLA. NECK: Range of motion is full in all directions. No tenderness to the paracervical muscles. No adenopathy. LUNGS: Clear. HEART: Regular. ABDOMEN: Benign. BACK: Range of motion is decreased in flexion and extension with tenderness to paraspinal muscles with wound VAC seen and placed with tenderness to palpation on the buttock area. EXTREMITIES: No cyanosis. No clubbing. No edema. NEURO: No changes. MIRTA BECKFORD. Apr 24, 2016 09:25
[2016-04-24] MEDS ORDERED: Norco 10mg/325mg tab ORAL PRN (09:30)
[2016-04-24] MEDS ORDERED: Rate Change PCA 1 Each MISC PRN (09:30)
[2016-04-24] MEDS: PCA HYDROmorphone 1mg/ml 30 ML IV PRN (11:28)
[2016-04-24 12:00] VITALS: BP 85/61
--- NOTE | 2016-04-24 16:22 | General Progress Note ---
Progress Note Progress Note pt without any c/o AF/VSS H/H decreased to 8 PE: incisional VAC in place JPs appropriate SS (-) collections/signs of infection A/P. 1. daily CBC; if pt symptomatic may need PRBC transfusion 2. OOB/ DVT ppx/cont Abx 3. KAE teaching; cont all 5 KAE's 4. will change to Provena Plus home incisional VAC prior to d/c 5. d/c home Sat/Sun with 2 weeks Cipro 500 PO BID and pain Rx 6. no showers until all drains are out 7. limit supine time to 4 hrs/24 hrs; minimal sitting 8. f/u out pt next Sat Kateryna Mello M.D. Apr 24, 2016 16:22
[2016-04-24 16:26] VITALS: BP 87/55
--- NOTE | 2016-04-24 17:20 | General Progress Note ---
Assessment/Plan Problem List: (1) Intractable back pain Assessment & Plan: s/p I+D of buttocks, POD#4 s/p stage 2 debridement POD#1 Cont postop care Pain control Supp care f/u expedited lab workup of severe low back pain, s/p gluteal silicone injection , lab workup to r/o WILSON syndrome given classical symptoms and presentation f/u blood cultures Cont IV unasyn A total of 31 minutes of time was spent above and beyond the normal visit time ICD Codes: M54.9 - Dorsalgia, unspecified SNOMED: 848674067 Subjective Date patient seen: Apr 24, 2016 Time patient seen: 17:19 ROS Limited/Unobtainable: No Allergies: Coded Allergies: AMPICILLIN (Verified Allergy, Unknown, 04/20/16) Nausea vomiting per patient SULBACTAM (Verified Allergy, Unknown, 04/20/16) Nausea vomiting per patient Subjective s/p I+D of buttocks POD#4, s/p stage 2 debridement of buttocks POD#1, no periop or postop complications. Denies any chest pain or dyspnea, pain is well controlled on current regimen. Objective Last 24 Hour Vital Signs Date Time Temp Pulse Resp B/P Pulse Ox O2 Delivery O2 Flow Rate FiO2 04/24/16 16:26 97.0 112 18 87/55 100 Room Air 04/24/16 16:00 17 04/24/16 12:00 98.4 107 18 85/61 97 Room Air 04/24/16 08:00 98.1 89 18 99/61 99 Room Air 04/24/16 04:00 97.9 87 19 106/50 95 Room Air 04/24/16 04:00 18 04/24/16 00:48 98.1 93 19 103/56 97 Room Air 04/24/16 00:00 18 04/23/16 20:00 18 04/23/16 20:00 97.2 108 20 102/51 96 Room Air Intake and Output 04/23/16 04/24/16 19:00 07:00 Intake Total 2000 ml 950 ml Output Total 539 ml 325 ml Balance 1461 ml 625 ml IV Total 2000 ml 950 ml Output Urine Total 250 ml 0 ml Drainage Total 132 ml 325 ml Estimated Blood Loss 150 ml Other 7 ml 0 ml # Voids 1 Laboratory Tests 04/24/16 04:00: White Blood Count 8.2, Red Blood Count 3.01L, Hemoglobin 8.9L, Hematocrit 26.1L , Mean Corpuscular Volume 87, Mean Corpuscular Hemoglobin 29.6, Mean Corpuscular Hemoglobin Concent 34.2, Red Cell Distribution Width 11.6, Platelet Count 271, Mean Platelet Volume 7.4, Neutrophils (%) (Auto) 72.4, Lymphocytes (% ) (Auto) 16.9L, Monocytes (%) (Auto) 10.2H, Eosinophils (%) (Auto) 0.2, Basophils (%) (Auto) 0.4, Sodium Level 140, Potassium Level 3.7, Chloride Level 103, Carbon Dioxide Level 26, Anion Gap 11, Blood Urea Nitrogen 4L, Creatinine 0.4L, Estimat Glomerular Filtration Rate > 60, Glucose Level 102, Calcium Level 8.3L Height (Feet): 5 Height (Inches): 1.00 Weight (Pounds): 140 Objective General: alert, cooperative, no distress, appears stated age Head: normocephalic, without obvious abnormality, atraumatic Eyes: conjunctivae/corneas clear. PERRL, EOM's intact Throat: lips, mucosa, and tongue normal. MMM Neck: supple, symmetrical, trachea midline, and no JVD Lungs: clear to auscultation bilaterally Heart: regular rate and rhythm, S1, S2 normal, no murmur, click, rub or gallop Abdomen: soft, non-tender, non-distended, bowel sounds normal; no masses or organomegaly Extremities: extremities normal, atraumatic, no cyanosis or edema Pulses: 2+ and symmetric Skin: skin color, texture, turgor normal; no rashes or lesions Neurologic: grossly normal, no focal deficits LEISA CHILDRESS Apr 24, 2016 17:20
[2016-04-24] MEDS ORDERED: LR 1000ml 1,000 ML IV ONE ×2 (18:30)
[2016-04-24 20:00] VITALS: BP 93/64
[2016-04-24] MEDS ORDERED: Tubing IV Secondary IV ONE (21:09)
[2016-04-24] MEDS ORDERED: NS Irrig 4000ml IRRIG ONE (21:09)
[2016-04-24] MEDS ORDERED: LR 1000ml ONE (21:09)
[2016-04-24] MEDS ORDERED: D5NS 1000ml IV ONE (21:09)
[2016-04-25] VITALS: BP 105/45
[2016-04-25 04:00] VITALS: BP 91/54
[2016-04-25] MEDS: LR 1000ml 1,000 ML IV SCH ×2 (04:00→12:26)
[2016-04-25] MEDS: Heparin 5000 units/ml inj SUBQ SCH ×3 (05:52→22:05)
[2016-04-25] MEDS: PCA shift volume MISC SCH ×3 (07:16→23:00)
[2016-04-25 07:39] LABS: BASOPHILS % (AUTO) 0.5 % (0.0-2.0); EOSINOPHILS % (AUTO) 1.7 % (0.0-3.0); LYMPHOCYTES % (AUTO) 22.7 % (20.0-45.0); MEAN CORPUSCULAR HEMOGLOBIN 29.6 PG (27.0-31.0); MEAN CORPUSCULAR HGB CONC 33.6 G/DL (32.0-36.0); MEAN CORPUSCULAR VOLUME 88 FL (80-99); MEAN PLATELET VOLUME 7.1 FL (6.5-10.1); MONOCYTES % (AUTO) 9.5 % (1.0-10.0); NEUTROPHILS % (AUTO) 65.7 % (45.0-75.0); PLATELET COUNT 273 K/UL (150-450); RED BLOOD COUNT 2.88 M/UL (4.20-5.40); RED CELL DISTRIBUTION WIDTH 11.8 % (11.6-14.8); WHITE BLOOD COUNT 6.8 K/UL (4.8-10.8)
[2016-04-25 08:00] VITALS: BP 106/50
[2016-04-25] MEDS: Docusate 100mg cap ORAL SCH ×2 (09:43→22:01)
[2016-04-25 12:00] VITALS: BP 96/57
--- NOTE | 2016-04-25 12:54 | General Progress Note ---
Assessment/Plan Problem List: (1) Intractable back pain Assessment & Plan: s/p I+D of buttocks, POD#5 s/p stage 2 debridement POD#2 Cont postop care Pain control Supp care f/u expedited lab workup of severe low back pain, s/p gluteal silicone injection , lab workup to r/o WILSON syndrome given classical symptoms and presentation f/u blood cultures Cont IV unasyn A total of 31 minutes of time was spent above and beyond the normal visit time ICD Codes: M54.9 - Dorsalgia, unspecified SNOMED: [id number] Subjective Date patient seen: Apr 25, 2016 Time patient seen: 12:54 ROS Limited/Unobtainable: No Allergies: Coded Allergies: AMPICILLIN (Verified Allergy, Unknown, 04/20/16) Nausea vomiting per patient SULBACTAM (Verified Allergy, Unknown, 04/20/16) Nausea vomiting per patient Subjective s/p I+D of buttocks POD#5, s/p stage 2 debridement of buttocks POD#2, no periop or postop complications. Denies any chest pain or dyspnea, pain is well controlled on current regimen. Objective Last 24 Hour Vital Signs Date Time Temp Pulse Resp B/P Pulse Ox O2 Delivery O2 Flow Rate FiO2 04/25/16 12:00 97.9 110 18 96/57 97 Room Air 04/25/16 08:00 19 04/25/16 08:00 97.9 100 19 106/50 96 Room Air 04/25/16 04:00 16 04/25/16 04:00 98.1 103 18 91/54 96 Nasal Cannula 04/25/16 00:00 98.1 102 20 105/45 99 Nasal Cannula 04/25/16 00:00 16 04/24/16 20:00 97.7 86 17 93/64 100 Room Air 04/24/16 20:00 17 04/24/16 16:26 97.0 112 18 87/55 100 Room Air 04/24/16 16:00 17 Intake and Output 04/24/16 04/25/16 18:59 06:59 Intake Total 1320 ml 820 ml Output Total 170 ml 252 ml Balance 1150 ml 568 ml Intake Oral 420 ml 120 ml IV Total 900 ml 700 ml Drainage Total 170 ml 177 ml Other 75 ml # Voids 2 3 Laboratory Tests 04/25/16 07:00: White Blood Count 6.8, Red Blood Count 2.88L, Hemoglobin 8.5L, Hematocrit 25.4L , Mean Corpuscular Volume 88, Mean Corpuscular Hemoglobin 29.6, Mean Corpuscular Hemoglobin Concent 33.6, Red Cell Distribution Width 11.8, Platelet Count 273, Mean Platelet Volume 7.1, Neutrophils (%) (Auto) 65.7, Lymphocytes (% ) (Auto) 22.7, Monocytes (%) (Auto) 9.5, Eosinophils (%) (Auto) 1.7, Basophils ( %) (Auto) 0.5 Height (Feet): 5 Height (Inches): 1.00 Weight (Pounds): 140 Objective General: alert, cooperative, no distress, appears stated age Head: normocephalic, without obvious abnormality, atraumatic Eyes: conjunctivae/corneas clear. PERRL, EOM's intact Throat: lips, mucosa, and tongue normal. MMM Neck: supple, symmetrical, trachea midline, and no JVD Lungs: clear to auscultation bilaterally Heart: regular rate and rhythm, S1, S2 normal, no murmur, click, rub or gallop Abdomen: soft, non-tender, non-distended, bowel sounds normal; no masses or organomegaly Extremities: extremities normal, atraumatic, no cyanosis or edema Pulses: 2+ and symmetric Skin: skin color, texture, turgor normal; no rashes or lesions Neurologic: grossly normal, no focal deficits LEISA CHILDRESS Apr 25, 2016 12:54
--- NOTE | 2016-04-25 13:01 | General Progress Note ---
Progress Note Progress Note pt without any c/o except lightheadedness AF/VSS H/H decreased min to 8/25 PE: incisional VAC in place JPs appropriate SS (-) collections/signs of infection A/P. 1. daily CBC; xfuse 1 u PRBC 2. OOB/ DVT ppx/cont Abx 3. KAE teaching; cont all 5 KAE's 4. will change to Provena Plus home incisional VAC prior to d/c 5. d/c home Sun with 2 weeks Cipro 500 PO BID and pain Rx 6. no showers until all drains are out 7. limit supine time to 4 hrs/24 hrs; minimal sitting 8. f/u out pt next Sat 9. transition to oral pain rx Kateryna Mello M.D. Apr 25, 2016 13:01
[2016-04-25 16:33] VITALS: BP 93/47
[2016-04-25 20:00] VITALS: BP 87/50
[2016-04-26] VITALS: BP 121/59
[2016-04-26] MEDS: LR 1000ml 1,000 ML IV SCH ×3 (06:35→20:09)
[2016-04-26] MEDS: Heparin 5000 units/ml inj SUBQ SCH ×3 (06:38→21:14)
[2016-04-26] MEDS: PCA shift volume MISC SCH (07:00)
[2016-04-26 08:00] VITALS: BP 106/46
[2016-04-26] MEDS: PCA HYDROmorphone 1mg/ml 30 ML IV PRN (08:17)
[2016-04-26] MEDS: Docusate 100mg cap ORAL SCH ×2 (08:56→21:08)
[2016-04-26] MEDS ORDERED: HYDROmorphone 1mg/ml Carpuject IVP PRN (10:30)
--- NOTE | 2016-04-26 10:44 | Discharge Summary ---
Discharge Summary Hospital Course Date of Admission Apr 18, 2016 at 15:30 Date of Discharge Apr 26, 2016 Admitting Diagnosis intractable back pain Reason for Hospitalization: intractable back pain SIMBA Cao is a 25 year old female who was admitted on Apr 18, 2016 at 15: 30 for Intractable Back Pain Consultations Plastic Surgery Procedures See Operative Reports Hospital Course 25 y/o female with hx of silicone injections into the buttocks area, presented with uncontrolled low back pain, radiculopathy, buttocks pain/burning. Admitted for pain control and further evaluation. Lab workup was done to r/o WILSON syndrome. Plastic surgery was consulted, MRI showed granulomas throughout. She was taken to surgery for extensive debridement of soft tissue necrotic areas, no periop or postop complications. After stability of the wound, ability to ambulate and tolerating PO pain meds, pt was dced home with a wound vac and drains in place on [facility], [place] and [place], will f/u with plastic surgery on Wednesday, 05/01 for outpt followup. Discharge Medications Discontinued Medications: No Known Medications* (NKM - No Known Medications*) . 0 ., 0 Refills Discharge Condition Upon Discharge: stable Discharge Disposition Patient was discharged to home Discharge Diagnoses: (1) Cellulitis and abscess of buttock LEISA CHILDRESS Apr 26, 2016 10:44
--- NOTE | 2016-04-26 10:44 | General Progress Note ---
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 We will discontinue [employer] Dilaudid. The patient was discussed with Dr. Ardon and Dr. Ardon concurred. Subjective Date patient seen: Apr 26, 2016 Time patient seen: 07:00 - am Allergies: Coded Allergies: AMPICILLIN (Verified Allergy, Unknown, 04/20/16) Nausea vomiting per patient SULBACTAM (Verified Allergy, Unknown, 04/20/16) Nausea vomiting per patient Subjective REVIEW OF SYSTEMS: Denies rash, fever, chills, sweating, dizziness, drowsiness, blurred vision, sore throat, or change in her weight. No shortness of breath or chest pain. No nausea, vomiting, diarrhea, or blood in the stool or urine. No bowel or bladder incontinence. No dysuria. Complaining of back and buttock pain. SUBJECTIVE: Pain as per patient continues to be at a mild level using 4mg of [employer] in last 24 hrs. I d/w pt about d/cing the [employer] she agrees. Objective Last 24 Hour Vital Signs Date Time Temp Pulse Resp B/P Pulse Ox O2 Delivery O2 Flow Rate FiO2 04/26/16 08:00 18 04/26/16 04:00 18 04/26/16 04:00 98.1 87 19 97 Room Air 04/26/16 00:00 98.2 97 19 121/59 94 Room Air 04/26/16 00:00 18 04/25/16 20:00 17 04/25/16 20:00 98.2 96 17 87/50 Room Air 04/25/16 16:33 98.1 98 19 93/47 99 Room Air 04/25/16 16:00 17 04/25/16 12:00 18 04/25/16 12:00 97.9 110 18 96/57 97 Room Air Intake and Output 04/25/16 04/26/16 19:00 07:00 Intake Total 880 ml 240 ml Output Total 50 ml 107 ml Balance 830 ml 133 ml Intake Oral 480 ml 240 ml IV Total 400 ml Drainage Total 50 ml 82 ml Other 25 ml # Voids 1 5 Height (Feet): 5 Height (Inches): 1.00 Weight (Pounds): 140 Objective GENERAL: Alert, awake, and oriented x3. HEENT: PERRLA. NECK: Range of motion is full in all directions. No tenderness to the paracervical muscles. No adenopathy. LUNGS: Clear. HEART: Regular. ABDOMEN: Benign. BACK: Range of motion is decreased in flexion and extension with tenderness to paraspinal muscles with wound VAC seen and placed with tenderness to palpation on the buttock area. EXTREMITIES: No cyanosis. No clubbing. No edema. NEURO: No changes. MIRTA BECKFORD Apr 26, 2016 10:44
--- NOTE | 2016-04-26 11:22 | General Progress Note ---
Progress Note Progress Note pt without any c/o and reports resolution of pre-op symptoms and pain AF/VSS H/H today pending PE: incisional VAC in place JPs appropriate SS (-) collections/signs of infection A/P. 1. OOB/ DVT ppx/cont Abx 2. KAE teaching; cont all 5 KAE's 3. switched to Provena Plus home incisional VAC 5. d/c home Sun with 2 weeks Cipro 500 PO BID and pain Rx AFTER RECHECK TODAYS CBC S/P PRBC TRANSFUSION 6. no showers until all drains are out 7. limit supine time to 4 hrs/24 hrs; minimal sitting 8. f/u out pt next Sat 9. transition to oral pain rx Kateryna Mello M.D. Apr 26, 2016 11:22
[2016-04-26 12:00] VITALS: BP 109/60
[2016-04-26 12:04] LABS: BASOPHILS % (AUTO) 0.9 % (0.0-2.0); EOSINOPHILS % (AUTO) 2.7 % (0.0-3.0); LYMPHOCYTES % (AUTO) 20.6 % (20.0-45.0); MEAN CORPUSCULAR HEMOGLOBIN 29.3 PG (27.0-31.0); MEAN CORPUSCULAR HGB CONC 33.2 G/DL (32.0-36.0); MEAN CORPUSCULAR VOLUME 88 FL (80-99); MEAN PLATELET VOLUME 7.2 FL (6.5-10.1); MONOCYTES % (AUTO) 8.4 % (1.0-10.0); NEUTROPHILS % (AUTO) 67.3 % (45.0-75.0); PLATELET COUNT 342 K/UL (150-450); RED BLOOD COUNT 4.02 M/UL (4.20-5.40); RED CELL DISTRIBUTION WIDTH 11.9 % (11.6-14.8); WHITE BLOOD COUNT 7.3 K/UL (4.8-10.8)
[2016-04-26] MEDS: Norco 10mg/325mg tab ORAL PRN ×2 (13:14→19:57)
[2016-04-26 15:56] VITALS: BP 98/56
[2016-04-26 20:00] VITALS: BP 104/55
[2016-04-26] MEDS: Ciprofloxacin 500mg tab ORAL SCH (21:08)
[2016-04-27 00:50] VITALS: BP 98/57
[2016-04-27] MEDS: Norco 10mg/325mg tab ORAL PRN ×3 (01:37→16:15)
[2016-04-27 04:00] VITALS: BP 96/55
[2016-04-27] MEDS: LR 1000ml 1,000 ML IV SCH ×2 (05:05→16:00)
[2016-04-27] MEDS: Heparin 5000 units/ml inj SUBQ SCH ×2 (06:28→14:00)
[2016-04-27 08:00] VITALS: BP 92/49
[2016-04-27] MEDS: Ciprofloxacin 500mg tab ORAL SCH (08:18)
[2016-04-27] MEDS: Docusate 100mg cap ORAL SCH (08:18)
--- NOTE | 2016-04-27 08:41 | General Progress Note ---
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 We start Neurontin 100mg TID. The patient was discussed with Dr. Ardon and Dr. Ardon concurred. Subjective Date patient seen: Apr 27, 2016 Time patient seen: 06:30 - am Allergies: Coded Allergies: AMPICILLIN (Verified Allergy, Unknown, 04/20/16) Nausea vomiting per patient SULBACTAM (Verified Allergy, Unknown, 04/20/16) Nausea vomiting per patient Subjective REVIEW OF SYSTEMS: Denies rash, fever, chills, sweating, dizziness, drowsiness, blurred vision, sore throat, or change in her weight. No shortness of breath or chest pain. No nausea, vomiting, diarrhea, or blood in the stool or urine. No bowel or bladder incontinence. No dysuria. Complaining of back and buttock pain. SUBJECTIVE: Pain is a 4/10 but is c/o burning sharp pain in her buttock and back I d/w her about Neurontin she agrees. Objective Last 24 Hour Vital Signs Date Time Temp Pulse Resp B/P Pulse Ox O2 Delivery O2 Flow Rate FiO2 04/27/16 04:00 97.8 83 19 96/55 98 Room Air 04/27/16 00:50 98.2 87 18 98/57 97 Room Air 04/26/16 20:56 98.2 04/26/16 20:00 98.2 87 19 104/55 97 Room Air 04/26/16 15:56 97.9 104 20 98/56 96 Room Air 04/26/16 12:00 97.7 96 18 109/60 97 Room Air Intake and Output 04/26/16 04/27/16 19:00 07:00 Intake Total 1200 ml 620 ml Output Total 36 ml 92 ml Balance 1164 ml 528 ml Intake Oral 420 ml IV Total 1200 ml 200 ml Drainage Total 36 ml 92 ml # Voids 2 Laboratory Tests 04/26/16 11:40: White Blood Count 7.3, Red Blood Count 4.02L, Hemoglobin 11.8#L, Hematocrit 35.5 #L, Mean Corpuscular Volume 88, Mean Corpuscular Hemoglobin 29.3, Mean Corpuscular Hemoglobin Concent 33.2, Red Cell Distribution Width 11.9, Platelet Count 342, Mean Platelet Volume 7.2, Neutrophils (%) (Auto) 67.3, Lymphocytes (% ) (Auto) 20.6, Monocytes (%) (Auto) 8.4, Eosinophils (%) (Auto) 2.7, Basophils ( %) (Auto) 0.9 Height (Feet): 5 Height (Inches): 1.00 Weight (Pounds): 140 Objective GENERAL: Alert, awake, and oriented x3. HEENT: PERRLA. NECK: Range of motion is full in all directions. No tenderness to the paracervical muscles. No adenopathy. LUNGS: Clear. HEART: Regular. ABDOMEN: Benign. BACK: Range of motion is decreased in flexion and extension with tenderness to paraspinal muscles with wound VAC seen and placed with tenderness to palpation on the buttock area. EXTREMITIES: No cyanosis. No clubbing. No edema. NEURO: No changes. MIRTA BECKFORD Apr 27, 2016 08:41
[2016-04-27 09:58] LABS: BASOPHILS % (AUTO) 0.7 % (0.0-2.0); EOSINOPHILS % (AUTO) 2.9 % (0.0-3.0); LYMPHOCYTES % (AUTO) 18.9 % (20.0-45.0); MEAN CORPUSCULAR HEMOGLOBIN 28.8 PG (27.0-31.0); MEAN CORPUSCULAR HGB CONC 32.8 G/DL (32.0-36.0); MEAN CORPUSCULAR VOLUME 88 FL (80-99); MEAN PLATELET VOLUME 7.1 FL (6.5-10.1); MONOCYTES % (AUTO) 7.2 % (1.0-10.0); NEUTROPHILS % (AUTO) 70.3 % (45.0-75.0); PLATELET COUNT 369 K/UL (150-450); RED BLOOD COUNT 3.88 M/UL (4.20-5.40); WHITE BLOOD COUNT 7.6 K/UL (4.8-10.8)
[2016-04-27 11:58] VITALS: BP 91/54
--- NOTE | 2016-04-27 14:14 | General Progress Note ---
Assessment/Plan Problem List: (1) Intractable back pain Assessment & Plan: s/p I+D of buttocks, POD#6 s/p stage 2 debridement POD#3 Unable to get portable wound vac to connect properly, will dc home today with dressings/pads, will f.u on Sat with plastic surgery as outpt Cont postop care Pain control Supp care f/u expedited lab workup of severe low back pain, s/p gluteal silicone injection , lab workup to r/o WILSON syndrome given classical symptoms and presentation f/u blood cultures Cont IV unasyn A total of 31 minutes of time was spent above and beyond the normal visit time ICD Codes: M54.9 - Dorsalgia, unspecified SNOMED: [id number] Subjective Date patient seen: Apr 27, 2016 Time patient seen: 14:12 ROS Limited/Unobtainable: No Allergies: Coded Allergies: AMPICILLIN (Verified Allergy, Unknown, 04/20/16) Nausea vomiting per patient SULBACTAM (Verified Allergy, Unknown, 04/20/16) Nausea vomiting per patient Subjective s/p I+D of buttocks POD#6, s/p stage 2 debridement of buttocks POD#3, no periop or postop complications. Denies any chest pain or dyspnea, pain is well controlled on current regimen. DC yesterday held as wound vac was not working correctly Objective Last 24 Hour Vital Signs Date Time Temp Pulse Resp B/P Pulse Ox O2 Delivery O2 Flow Rate FiO2 04/27/16 11:58 97.7 98 18 91/54 100 Room Air 04/27/16 08:00 97.9 84 19 92/49 98 Room Air 04/27/16 04:00 97.8 83 19 96/55 98 Room Air 04/27/16 00:50 98.2 87 18 98/57 97 Room Air 04/26/16 20:56 98.2 04/26/16 20:00 98.2 87 19 104/55 97 Room Air 04/26/16 15:56 97.9 104 20 98/56 96 Room Air Intake and Output 04/26/16 04/27/16 19:00 07:00 Intake Total 1200 ml 620 ml Output Total 36 ml 92 ml Balance 1164 ml 528 ml Intake Oral 420 ml IV Total 1200 ml 200 ml Drainage Total 36 ml 92 ml # Voids 2 Laboratory Tests 04/27/16 08:45: White Blood Count 7.6, Red Blood Count 3.88L, Hemoglobin 11.2L, Hematocrit 34.0L , Mean Corpuscular Volume 88, Mean Corpuscular Hemoglobin 28.8, Mean Corpuscular Hemoglobin Concent 32.8, Red Cell Distribution Width 12.0, Platelet Count 369, Mean Platelet Volume 7.1, Neutrophils (%) (Auto) 70.3, Lymphocytes (% ) (Auto) 18.9L, Monocytes (%) (Auto) 7.2, Eosinophils (%) (Auto) 2.9, Basophils (%) (Auto) 0.7 Height (Feet): 5 Height (Inches): 1.00 Weight (Pounds): 140 Objective General: alert, cooperative, no distress, appears stated age Head: normocephalic, without obvious abnormality, atraumatic Eyes: conjunctivae/corneas clear. PERRL, EOM's intact Throat: lips, mucosa, and tongue normal. MMM Neck: supple, symmetrical, trachea midline, and no JVD Lungs: clear to auscultation bilaterally Heart: regular rate and rhythm, S1, S2 normal, no murmur, click, rub or gallop Abdomen: soft, non-tender, non-distended, bowel sounds normal; no masses or organomegaly Extremities: extremities normal, atraumatic, no cyanosis or edema Pulses: 2+ and symmetric Skin: skin color, texture, turgor normal; no rashes or lesions Neurologic: grossly normal, no focal deficits LEISA CHILDRESS Apr 27, 2016 14:14
[2016-04-27] MEDS ORDERED: CIPRO250 MG ORAL (15:33)
[2016-04-27] MEDS ORDERED: CIPRO500 MG/51 PO (15:33)
[2016-04-27] MEDS ORDERED: FERROUS SULFAT325 M2 ORAL (15:34)
[2016-04-27] MEDS ORDERED: NORCO 10-325 T1 EACH ORAL ×2 (15:35→15:37)
[2016-04-27 16:08] VITALS: BP 92/58
--- NOTE | 2016-04-28 00:29 | Consultation ---
DATE OF CONSULTATION: DATE OF CONSULTATION: 04/20/2016 SURGEON: Kateryna Mello M.D. HISTORY OF PRESENT ILLNESS: This is a 25-year-old female, who presented to the emergency room at [facility] complaining of severe incapacitating bilateral buttock and back pain, burning and itching, as well as subjective fevers, chills, redness and warmth of bilateral buttocks over the past couple of days. The patient has a history of injections to bilateral buttocks and hips, with some silicone material, likely silicone two years ago. The patient has had intermittent problems over the past two years that are now worsening. I was consulted by Dr. Brook Jackman for low grade buttock cellulitis, as well as foreign material, as the patient was having incapacitating back and buttock pain and possible soft tissue necrosis. I was just called into the hospital to see if I can evaluate and treat the patient. The patient presented to the emergency room yesterday and was admitted for IV antibiotics for some low grade cellulitis, as well as with pain control for incapacitating pain. MRI done of her lumbar spine and bilateral buttocks showed significant nodules in the soft tissue of bilateral buttocks, and to the gluteus alexandra muscle, as well as extending cephalad to the level of the twelfth thoracic spine. This was likely the cause of her incapacitating back and buttock pain and likely underlying soft tissue necrosis. PHYSICAL EXAMINATION: The patient had a tender, warm, and red bilateral buttocks, and tender painful nodules, multiple ones in each buttock. There was no inguinal lymphadenopathy bilaterally. There was some redness and warmth of both buttocks consistent with early cellulitis. The lumbar back was also tender to palpation and there was a mass-like fluctuance underneath. The patient complained of significant limitations in ambulation and significant pain with sitting, as well as paresthesia and acute numbness of her legs, left greater than right. I explained to the patient in addition to the antibiotics for the recurrent low-grade infection that I recommended blood work to rule out WILSON syndrome, which is an autoimmune disease. I explained to the patient that I would offer surgery in a staged manner, but I would try to debulk and remove as much of the foreign material as possible by using a VAC therapy in the interim, as a definitive treatment for the recurrent infections and pain. Based on her MRI and clinical exam, the patient elected for surgery and I will dictate operative reports with further information. Kateryna Mello M.D. DR: SOO JOB#: [id number] CC:
--- NOTE | 2016-04-28 01:59 | Operative Note - Dictated ---
DATE OF OPERATION: 04/23/2016 SURGEON: Kateryna Mello M.D. STEAM FRAME OPERATOR SURGEON: Muna Napier M.D. SECOND STEAM FRAME OPERATOR SURGEON: Rocky Whittington M.D. ANESTHESIOLOGIST: Dr. Tam. ANESTHESIA: General endotracheal tube anesthesia. PREOPERATIVE DIAGNOSES: As follows, 1. Open bilateral buttock wounds, status post radical debridement and resection of necrotic soft tissue. 2. 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 3. Cellulitis of bilateral buttocks. POSTOPERATIVE DIAGNOSES: 1. Open bilateral buttock wounds, status post radical debridement and resection of necrotic soft tissue. 2. 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 3. Cellulitis of bilateral buttocks. PROCEDURE PERFORMED: As follows, 1. Staged partial radical removal of foreign bodies from lumbar back and bilateral buttocks and hips. 2. Radical resection of 240 cm2 of necrotic right buttock and hip soft tissue mass. 3. Radical resection of 330 cm2 of necrotic left buttock and hip necrotic soft tissue. 4. Lumbar spine fasciocutaneous advancement flap. 5. Right gluteal fasciocutaneous advancement flap. 6. Left gluteal fasciocutaneous advancement flap. 7. Complex closure of 46 cm open back wound. INDICATIONS FOR PROCEDURE: This is a 25-year-old female who was previously operated 3 days prior and in the interim the patient has been treated with VAC therapy on the floor. Vitals remained stable. The patient has been on intravenous antibiotics as well. Today the plan is to take the patient back for a planned second stage, look for further debridement of necrotic soft tissue from bilateral buttocks and hips as well as the back, removal of foreign material, and fasciocutaneous advancement flap closure over drains. Risks and benefits of the operation were fully discussed with the patient in the previous operation and reiterated in the holding area today. The patient agreed to proceed and signed informed consent, and all questions were answered. DESCRIPTION OF PROCEDURE: The patient was taken to the operating room and in the supine position placed under general endotracheal tube anesthesia. Perioperative antibiotics were confirmed and SCDs were placed in bilateral lower extremities. She was then flipped in the prone position after appropriate positioning and padding of her arms and the rest of body. We removed the VAC that was placed prior. We then prepped and draped the entire area in the usual clean and sterile manner. We used the blue towel and Ioban dressing over the anus to block any bowel flow. We then started the operation by exploring for any bleeding. There was nothing significant. We started the operation then by first using Prosper clamps and we measured proposed skin excision from bilateral buttocks, flaps, as well as the back, and we marked that proposed lines of excision. We then using #10 scalpel did cut down and excised a significant amount of buttock skin, back skin, and soft tissue with scalpel and electrocautery. Again with the aid of a lighted retractor, I did further elevate her flaps inferiorly on both buttocks. We did this all the way down to the inferior gluteal crease. We then elevated in the plane of dissection above the gluteus alexandra muscle. We then debrided more foreign body and necrotic soft tissue from bilateral buttocks. There was 330 cm2 of necrotic soft tissue from the left buttock and hips, and 240 cm2 of necrotic soft tissue in the right buttock and hip that we radically removed with a combination of sharp dissection as well as electrocautery. We made sure hemostasis was achieved with electrocautery and 2-0 Vicryl sutures. After doing this radical debulking, there was good cap refill to her flaps. We were pleased with this. There was some involvement of the muscle and some of the gluteus alexandra muscle had to be dbrided with electrocautery. We then incised the deep fascia and we advanced our bilateral gluteus flaps superiorly, and we did the same thing for the lumbar flap. Since we had to elevate up to the T12 spine of the back, after elevating it and cutting out some skin, as there was a huge space, we used 0-PDS progressive tension sutures and advanced the flap closure technique in a quilting suture manner to close off the space. Prior to doing this, we irrigated with 2 L of antibiotic irrigation and removed as much foreign material as we could. We then placed two #19 [place] Willis drains, one in each buttock into dependent portions, and two KAE drains in each buttock, one in the central portion of each buttock and one KAE drain underneath the back flap that we took out through anterior lateral hip incisions and secured in place with 2-0 silk sutures. We then lined up and approximated the Tatiana's fascia in interrupted fashion with 0-Vicryl sutures of this 46-cm long incision. We also took care of the dog ears that were thereby extending the incisions. We then used 2-0 Vicryl sutures, and lined up and approximated the deep dermis in interrupted fashion and then closed the epidermis with a running 3-0 Monocryl subcuticular suture. We then placed the Prevena incisional VAC on top of this. After doing this, there was a good capillary refill to the skin flaps. There was minimal tension and a nice contour was achieved, and we were very pleased with the results. The patient was flipped over to the supine position, extubated, and transferred to recovery room in stable condition. FINDINGS: As above. SPECIMENS: Left and right back and hip necrotic soft tissue as well as skin. DRAINS: #19 [place] Willis drains x2 and 10-mm KAE x3, bilateral buttocks. ESTIMATED BLOOD LOSS: About 300 mL. COMPLICATIONS: None. CONDITION: Stable. Kateryna Mello M.D. DR: BETY JOB#: [id number] CC:
--- NOTE | 2016-04-28 02:09 | Operative Note - Dictated ---
DATE OF OPERATION: 04/20/2016 FACILITY: [facility]. SURGEON: Kateryna Mello M.D. CHAIN DYER SURGEON: Muna Napier M.D. SECOND CONTRACTS ANALYST SURGEON: Greg Whittington M.D. ANESTHESIOLOGIST: Sherman Valadez M.D. PREOPERATIVE DIAGNOSES: As follows: 1. Bilateral buttock, hip, and back necrotic soft tissue secondary to foreign body reaction. 2. Cellulitis of bilateral buttocks. POSTOPERATIVE DIAGNOSES: 1. Bilateral buttock, hip, and back necrotic soft tissue secondary to foreign body reaction. 2. Cellulitis of bilateral buttocks. OPERATION PERFORMED: As follows. 1. Staged partial removal of foreign material from bilateral buttocks, hips, and back. 2. Elevation and delay of right inferiorly based gluteal fasciocutaneous flap. 3. Elevation and delay of left inferiorly based gluteal fasciocutaneous flap. 4. Elevation and delay of lumbar spine fasciocutaneous flap. 5. Radical resection of 300 sq. cm of necrotic soft tissue mass from the right buttock. 6. Radical resection of 187 sq. cm of necrotic soft tissue mass on the left buttock. 7. Radical resection of 240 sq. cm of necrotic soft tissue mass on the right back. 8. Radical resection of 180 sq. cm of necrotic soft tissue mass from the left back. 9. Debridement of bilateral gluteus alexandra necrotic muscles. 10. Pulse lavage irrigation of bilateral buttocks washout. 11. VAC placement bilateral buttocks. INDICATIONS: This is a 25-year-old female, who I had previously dictated consultation on after she was admitted to the hospital on 04/19/2016, complaining of significant severe incapacitating bilateral buttock and back pain as well as having a low-grade cellulitis. The patient was evaluated and cleared by the medical team including Dr. Jackman. Appropriate blood work to rule out WILSON syndrome was also performed. A psychiatrist also saw the patient. MRI of the lumbar spine and pelvis showed significant infiltration of the subcutaneous tissues of the lumbar spine up to T12, as well as bilateral buttock and soft tissue infiltration including the bilateral gluteus alexandra muscles also extending all the way down to the anterolateral thighs and the muscles of the thigh. This was the inciting cause of the patient's recurrent infections of cellulitis as well as likely the cause of the paresthesias and acute numbness to which she presented to the emergency room with some pressure on the paraspinal muscles as well as the sciatic nerve. The psychiatrist was asked to clear the patient so that she understands that she was about to go and was told to follow, that this was a staged partial removal of foreign material that was injected into her buttocks and hips, which was migrated to her back and down her thighs. There is no guarantee she will get better, there is a possibility she would get worse and the silicone may migrate and I certainly was not going to be able to take all of it out as that would be impossible to do, and there is a strong likelihood that some of the silicone has already migrated from her buttocks to her back, her legs, and other parts of her body. I also explained to the patient that this has a potential for being cosmetically disfiguring and there could be a very poor cosmetic outcome. The benefits of the proposed operation would be to debulk and remove the foreign body burden as possible, which will take the pressure off of her nerves, spine, legs, and buttocks and this will help to relieve her pain. It will also allow her immune system to reset so she is not as prone to recurrent infections and opportunistic infection and to prevent further migration of the material to other parts of the body. In the past day or so, the patient has been worked up to rule out WILSON syndrome, which blood work was pending. The patient has been on antibiotics for cellulitis and the redness and erythema has improved. She has been under pain control from the pain management team for incapacitating signifying buttock and back pain. I told the patient this was going to be a staged operation and a goal will be two operations and the first one today where I would raise and delay fasciocutaneous flaps in the back and bilateral buttocks, so I can see the viability of the skin flaps since there was an incredible amount of debulking that was going to occur. I said that since such a large amount of debulking was going to occur these flaps may become necrotic at their distal edges that is my reasoning in elevating and delaying the flaps and treating her with a VAC in the interim, which would also have to give me the benefit of re-evaluating the flaps to see if they needed to be debrided and the VAC machine could also suck out bacteria and foreign material. I have explained to the patient it is unknown how much of the foreign material I would take out, but I told her I would take out whatever is visible and palpable in a safe manner. It was a reiterated that this could be cosmetically disfiguring, she could have wound may break out. She may need multiple reconstructive surgeries over the next many years and her buttocks may come out significantly deformed. I told her conversely if she did nothing she is at high risk for having and eventually her whole buttocks necrosed and she would require much more radical surgery. The risks and benefits of the proposed operation included, but not limited to bleeding, hematoma, seroma, infection, DVT, PE, CT, , necrosis of the skin flaps, open wounds, delayed healing, hypertrophic scarring, keloid scarring, skin necrosis, damage to sensory and motor nerve, difficulty ambulating, chronic pain, and embolization of silicon to other parts of the body were discussed with the patient and all questions were answered. DESCRIPTION OF PROCEDURE: The patient was taken to the operating room and given 5000 units of heparin subcutaneously as well as preoperative antibiotics were given. SCDs were placed in the bilateral lower extremities prior to the induction of general anesthesia in the supine position. She was then placed in the prone position after appropriate positioning and padding on the operating room table. The buttocks and back were then prepped and draped in the usual clean and sterile manner after the anus was protected with a blue towel and Ioban dressing. In the preoperative holding area I marked a low transverse incision that was approximately 45 centimeters in length about 5 centimeters above the most superior aspect of the gluteal cleft. I explained to the patient that through this incision, which was a limited incision I would debulk as much necrotic fat and soft tissue and that this was a very challenging and complex operation since the foreign material was evident in the MRI very superiorly upper back to the thoracic 12 spine, as well as down to her anterolateral legs and thighs. I told her I would not be able to dress her legs at this point, the midportion of her thigh since I would not be able to recheck with this incision, and in the future she may need to have additional surgeries and new incisions to reach the leg. In the preoperative holding area the markings were correlating with MRI and physical exam. We re-marked in the operating room. Using a number #10 scalpel we dissected down through the skin and used electrocautery and dissected all the way down to the deep muscle fascia of the gluteus alexandra muscle and the paraspinal muscles. We then elevated three fasciocutaneous flap to be elevated at superior base, lumbar fasciocutaneous flap about 17 centimeter superiorly and correlating with the MRI and the physical exam the tender fluctuant areas. We then elevated left and right inferiorly based gluteal fasciocutaneous flaps as far down as we could with the instruments we had and we were able to dissect about 20 centimeters in a plane just deep to Tatiana's fascia dissected the skin flaps off the soft tissue and then with a combination of sharp dissection and electrocautery, we then debulked a large amount of fat necrosis, silicone scar tissue, and silicone granulomas, as well as silicone that was still liquid that we encountered. We would able to debulk this from bilateral buttocks as well as the back. There was 300 sq. cm of necrotic soft tissue from the right buttock, 187 sq. cm of necrotic soft tissue from the left buttock, 240 sq. cm of necrotic soft tissue from the right back, and 180 sq. cm of the necrotic soft tissue from the left back that we removed in the same manner and we sent this to the laboratory. After doing this, we noticed there was some necrosis of bilateral gluteus alexandra muscles and this was debrided sharply either godoy picked through the muscle and any silicone granulomas that we could feel the pop were removed, and the superficial silicone granuloma that were just below the dermis were also popped. We obtained hemostasis with electrocautery and irrigated with 2 liters of antibiotic irrigation. We then reconfirmed the hemostasis popped any more of the superficial silicone that we could see. At this point, we were quite pleased with the initial debulking, which would not go any further inferiorly. We did hemostasis. We placed VAC sponges underneath the flaps, stapled the wound on top of the VAC partially closed, set the machine to 125 mm to two VAC machines. We flipped the patient over, she was extubated, transferred to recovery room in stable condition. Findings were as above. ESTIMATED BLOOD LOSS: 300 mL. SPECIMENS: Bilateral buttock and bilateral back necrotic soft tissue, VAC sponges bilateral. COMPLICATIONS: None. CONDITION: Stable. Kateryna Mello M.D. DR: Renea JOB#: [id number] CC:
--- NOTE | 2016-04-28 14:38 | Cardiology Report ---
APPROVED REPORT EKG Measurement Heart [id number] ME [id number] Normal sinus rhythm Normal ECG
== END 2016-04-27 17:00 | disposition home or self-care (01) | DRG 574 ==
LOC: EMR 15:15 → 4E 15:30 → EDBEDREQ 04-19 07:21 → UNDOADMIN 04-19 07:37 → 4E 04-19 07:37 → 3E 04-21 06:18
DX: L03.317 Cellulitis of buttock (principal); I96 Gangrene, not elsewhere classified; L03.312 Cellulitis of back [any part except buttock and flank]; Z98.890 Other specified postprocedural states; Z88.1 Allergy status to other antibiotic agents; Z88.8 Allergy status to other drugs, medicaments and biological substances; Y83.8 Other surgical procedures as the cause of abnormal reaction of the patient, or of later complication, without mention of misadventure at the time of the procedure; M60.28 Foreign body granuloma of soft tissue, not elsewhere classified, other site; Z18.89 Other specified retained foreign body fragments
CPT/HCPCS: 36415; 72148; 72195; 80048; 80053; 81001; 81025; 82164; 82784; 84165; 85025; 85610; 85613; 85651; 85730; 86039; 86140; 86162; 86235; 86332; 86334; 86360; 86431; 86850; 86900; 86901; 86920; 87040; 93005; 94003; 94150; J2180; J2250; J2405; J2710; J2765; S0077